=== PATIENT | female | born 1935 | race Caucasian/White ===

== ENCOUNTER 2016-11-01 21:37 | Observation (INO) | payer OTHER, MEDICARE ==
[~2016-11-01] VITALS: Ht 157.5 cm; Wt 58.6 kg
[~2016-11-01 21:37] MED LIST: ASPI81TA28 PO; HYDR-5688 PO; LPT10 PO
[2016-11-01] MEDS ORDERED: SODIUM CHLORIDE 0.9% 1000ML 1,000 ML IV SCH (21:55)
[2016-11-01 22:13] LABS: BASO % 0.7 %; BASO ABS # 0.06 K/uL (0-0.2); COMPLETE YES; IG% 0.3 %; LYMPH % 30.7 %; LYMPH ABS # 2.66 K/uL (1.2-3.4); MEAN CELL VOLUME 88.4 fL (80-100); MEAN CORPUSCULAR HEMOGLOBIN 30.1 pg (25-34); MEAN PLATELET VOLUME 10.8 fL (7.4-10.4); NEUT % 54.3 %; PLATELET COUNT 235 K/uL (130-400); RED BLOOD COUNT 4.75 M/uL (4.2-5.4); WHITE BLOOD COUNT 8.67 K/uL (4.8-10.8)
--- NOTE | 2016-11-01 22:22 | DIAGNOSTIC IMAGING REPORT ---
HEAD CT NONCONTRAST CT DOSE: 638.56 mGycm HISTORY: Stroke symptoms. Headache. Confusion. Slurred speech. TECHNIQUE: Multiaxial CT images of the head were performed without the use of intravenous contrast. Automated exposure control was utilized for this study. Comparison: Head CT 12/22/2013. Findings: The paranasal sinuses and mastoid air cells are clear. The calvarium and skull base are intact. There is no mass, hematoma, midline shift, acute infarct. White matter hypodensity is nonspecific but suggestive of microvascular ischemic change. The ventricles and sulci demonstrate mild age-related involutional changes. Impression: No acute intracranial abnormality. Atrophy and microvascular ischemic changes. Electronically signed by: Umang De La O M.D. 11/01/2016 10:20 PM Dictated Date/Time: 11/01/2016 10:16 PM
[2016-11-01 22:27] LABS: PARTIAL THROMBOPLASTIN RATIO 0.9; PROTHROMBIN TIME (PATIENT) 10.2 SECONDS (9.0-12.0)
[2016-11-01] MEDS ORDERED: MELA5TAB20 PO (22:29)
[2016-11-01] MEDS ORDERED: OMEG10007 PO (22:29)
[2016-11-01] MEDS ORDERED: CALC-51 PO (22:29)
[2016-11-01] MEDS ORDERED: COEN1CAP PO (22:29)
[2016-11-01] MEDS ORDERED: MULT-513 PO (22:29)
[2016-11-01] MEDS ORDERED: DIPH1TAB PO (22:29)
[2016-11-01 22:30] LABS: BLOOD UREA NITROGEN 19 mg/dl (7-18); CALCIUM 9.2 mg/dl (8.5-10.1); CARBON DIOXIDE 27 mmol/L (21-32); CHLORIDE 102 mmol/L (98-107); CREATININE 0.91 mg/dl (0.60-1.20); GLUCOSE 143 mg/dl (70-99); SODIUM 140 mmol/L (136-145)
[2016-11-01] MEDS ORDERED: GLUC10007 PO (22:30)
[2016-11-01 22:35] LABS: CKMB/CK RATIO 1.8 (0-3.0)
[2016-11-01] MEDS ORDERED: ONDANSETRON INJ 2 MG/ML 2 ML VIAL ONE (23:08)
[2016-11-01] MEDS ORDERED: ONDANSETRON INJ 2 MG/ML 2 ML VIAL IV STA (23:13)
[2016-11-01] MEDS ORDERED: IV FLUIDS COMPLETED PRN (23:45)
[2016-11-02] MEDS ORDERED: CLOPIDOGREL BISULFATE 75 MG TAB PO STA (00:11)
[2016-11-02] MEDS ORDERED: METOCLOPRAMIDE HCL INJ 5 MG/ML 2 ML VIAL IV STA (00:12)
[2016-11-02 00:13] LABS: ALKALINE PHOSPHATASE 68 U/L (45-117); ALT/SGPT 37 U/L (12-78)
[2016-11-02] MEDS ORDERED: PHARMACIST DISCHARGE MED REC CONSULT PRN (00:15)
[2016-11-02] MEDS ORDERED: ONDANSETRON INJ 2 MG/ML 2 ML VIAL IV PRN (00:15)
[2016-11-02] MEDS ORDERED: NITROGLYCERIN 0.4 MG SL PER TAB CHARGE SL PRN (00:15)
[2016-11-02] MEDS ORDERED: LORAZEPAM 2 MG/ML 1 ML VIAL IV PRN (00:15)
[2016-11-02] MEDS ORDERED: TRAMADOL HCL 50 MG TAB PO PRN (00:15)
[2016-11-02] MEDS ORDERED: HYDROmorphone INJ 0.5 MG/0.5 ML SYR IV PRN (00:15)
[2016-11-02] MEDS ORDERED: SODIUM CHLORIDE 0.9% 1000ML 1,000 ML IV ONE (00:15)
[2016-11-02] MEDS ORDERED: ACETAMINOPHEN 325 MG TAB PO PRN (00:15)
[2016-11-02 00:17] LABS: AST/SGOT 26 U/L (15-37); MAGNESIUM 2.4 mg/dl (1.8-2.4)
--- NOTE | 2016-11-02 01:23 | HISTORY & PHYSICAL EXAMINATION ---
DATE OF ADMISSION: 11/01/2016 PRIMARY CARE PHYSICIAN: Dr. Orosco. Hx obtained from px and records. CHIEF COMPLAINT: Slurred speech, word-finding difficulty. HISTORY OF PRESENT ILLNESS: Medical history is significant for TIA, hyperlipidemia, past tobacco abuse, GERD. Recent confinement in May 2015 for hematemesis post-colonoscopy prep intake. Patient was having dinner last night when she noted slurred speech, word- finding difficulty, similar to previous TIA sx. The patient also had achy left-sided headache sx as well somewhat worse w/ light. She had some posterior neck pain as well and some nausea. No chest pain, no shortness of breath. Compliant with home aspirin. At the Emergency Room, she had emesis. Stroke alert was called. Patient's symptoms are improving. MEDICAL HISTORY: As above. SURGERIES: She has had a D andC , cataract surgery and breast biopsy. HOME MEDICATIONS: Atorvastatin, aspirin, Claritin, multivitamins and glucosamine ALLERGIES: gluten FAMILY HISTORY: Colon cancer. PERSONAL AND SOCIAL HISTORY: Past tobacco. No chronic intake of alcoholic beverages. Retired sculptress REVIEW OF SYSTEMS: As per HPI, all other ROS negative. PHYSICAL EXAMINATION: VITAL SIGNS: Blood pressure was noted to be SBP 190s later 150/80, pulse rate 79, RR 20 T 37 O2 sats 94 on room air. GENERAL: Noted to be slightly anxious, uncomfortable, looks younger for age SKIN: Normal color. HEENT: Lester palpebral conjunctivae. Dry mucosa. NECK: Supple. CHEST: Clear to auscultation. HEART: Regular rate and rhythm. ABDOMEN: Soft. EXTREMITIES: No edema. No tenderness NEUROLOGIC: No gross focality. LABORATORIES: Hemoglobin was noted to be 14.8, hematocrit 42, white cell count 8.67 platelets 235. Sodium 140, potassium 4, chloride 102, CO2 27, BUN 19, creatinine 0.9, glucose 143 CT of the head; no acute pathology. ASSESSMENT: 1. Transient dysarthria, dysphasia symptoms poss recurrent TIA, ? ASA failure ddx : complicated migraine with headache symptoms 2. hypertensive urgency secondary to above 3. hyperlipidemia as per records 4. past tobacco abuse. 5. hyperglycemia ro DM PLAN: Observation PCU. Neuro checks. Plavix for now for poss ASA failure. MRI/MRA brain Further management pending MRI results. May need Neurology consult. permissive HTN until stroke ruled out. check HgA1C DVT prophylaxis, Lovenox subQ. Full code. MTDD
[2016-11-02 01:26] LABS: URINE APPEARANCE TURBID (CLEAR); URINE BILIRUBIN NEG (NEG); URINE COLOR YELLOW; URINE NITRITE NEG (NEG); URINE PH 8.5 (4.5-7.5); URINE SPECIFIC GRAVITY 1.007 (1.000-1.030); UROBILINOGEN NEG (NEG); ZZUR CULT IF INDIC CLEAN CATCH YES
[2016-11-02 01:35] LABS: MANUAL MICROSCOPIC REQUIRED? NO; REVIEW REQ? NO
--- NOTE | 2016-11-02 01:36 | EMERGENCY ROOM VISIT NOTE ---
History Report prepared by Robyn: Nicolle Miner Under the Supervision of: Dr. Mack Mcginnis D.O. First contact with patient: 21:45 Chief Complaint: STROKE SYMPTOMS Stated Complaint: SLURRED SPEECH, GUTHRIE, CONFUSION, History of Present Illness The patient is a 81 year old female who presents to the Emergency Room with complaints of constant slurred speech beginning 4 hours ago. The patient states that she thinks that she is having a TIA as she has had one before and this feels the same. She notes that she is having trouble finding her words and she experienced this during her last TIA 2 years ago as well. She reports that this happened when she was eating but she did not have any trouble eating. She complains of a headache on the left side. The patient denies any weakness or numbness in the arms or legs and change of vision, fevers, chest pain, shortness of breath, nausea, vomiting, diarrhea, urinary symptoms. She states that she takes Aspirin but is not on blood thinners. She does not have a history of A-fib. The patient reports that she does not feel like she has gotten any better since it started. Source of History: patient Onset: 4 hours ago Position: other (global) Timing: constant Associated Symptoms: + headache, No SOB, No chest pain, No diarrhea, No fevers, No nausea, No numbness, No urinary symptoms, No vomiting, No weakness Note: She notes that she cannot find words. The patient denies any weakness or numbness in the arms or legs and change of vision. Review of Systems See HPI for pertinent positives & negatives. A total of 10 systems reviewed and were otherwise negative. Past Medical & Surgical Medical Problems: (1) Anxiety (2) Arthritis (3) Cystocele (4) Disk disease (5) GERD (gastroesophageal reflux disease) (6) Hiatal hernia (7) High cholesterol (8) History of possible TIA (9) History of vertigo (10) Insomnia (11) Migraine (12) Osteoporosis (13) TIA (transient ischemic attack) Surgical Problems: (1) H/O colonoscopy with polypectomy (2) H/O esophagogastroduodenoscopy (3) History of cataract surgery (4) History of dilatation and curettage (5) History of hysteroscopy (6) S/P breast biopsy Family History Colon cancer Social History Smoking Status: Never Smoker Drug Use: none Marital Status: Occupation Status: retired Current/Historical Medications Scheduled Aspirin (Aspirin Ec), 81 MG PO DAILY Atorvastatin (Atorvastatin Calcium), 10 MG PO DAILY Calcium Carbonate-Vitamin D (Calcium), 1 TAB PO QAM Fish Oil ([place]-3), 1 CAP PO QAM Multivitamins/Minerals (Mvi With Minerals), 1 TAB PO QAM Scheduled PRN Diphenhydramine Hcl (Benadryl Allergy), 25 MG PO HS PRN for Sleep Melatonin (Cvs Melatonin), 5 MG PO HS PRN for Sleep Miscellaneous Medications Coenzyme Q10 (Ubidecarenone) (Co Q10), Unknown Dose PO Glucosamine Sulfate (Glucosamine), Unknown Dose PO Allergies Coded Allergies: Gluten (Verified Allergy, Mild, 11/01/16) Physical Exam Vital Signs Date Time Temp Pulse Resp B/P Pulse Ox O2 Delivery O2 Flow Rate FiO2 11/02/16 00:15 73 18 153/77 93 11/02/16 00:00 73 18 153/77 93 Room Air 11/01/16 23:00 70 20 150/80 95 Room Air 11/01/16 22:45 70 20 150/84 92 Room Air 11/01/16 22:30 71 18 153/75 93 Room Air 11/01/16 22:24 72 11/01/16 22:17 71 20 152/87 97 Room Air 11/01/16 22:17 97 Room Air 11/01/16 22:04 79 20 154/83 94 Room Air 11/01/16 21:39 36.6 71 20 191/73 96 Room Air Physical Exam GENERAL: sitting up in bed, disheveled, non-toxic EYE EXAM: normal conjunctiva, PERRL and EOM's intact OROPHARYNX: no exudate, no erythema, lips, buccal mucosa, and tongue normal and mucous membranes are moist NECK: supple, no nuchal rigidity, no adenopathy, non-tender LUNGS: Clear to auscultation. Normal chest wall mechanics HEART: no murmurs, S1 normal and S2 normal ABDOMEN: abdomen soft, non-tender, normo-active bowel sounds, no masses, no rebound or guarding. BACK: Back is symmetrical on inspection and there is no deformity, no midline tenderness, no CVA tenderness. SKIN: no rashes and no bruising UPPER EXTREMITIES: upper extremities are grossly normal. LOWER EXTREMITIES: No pitting edema. NEURO EXAM: Alert, following commands, intermittent word finding, no weakness of upper or lower extremities, cranial nerves II-XII intact, normal speech. No drift. Finger to nose intact. Gross sensation intact. Medical Decision & Procedures ER Provider Diagnostic Interpretation: CT:Per my review, radiologist interpretation. HEAD CT NONCONTRAST Findings: The paranasal sinuses and mastoid air cells are clear. The calvarium and skull base are intact. There is no mass, hematoma, midline shift, acute infarct. White matter hypodensity is nonspecific but suggestive of microvascular ischemic change. The ventricles and sulci demonstrate mild age-related involutional changes. Impression: No acute intracranial abnormality. Atrophy and microvascular ischemic changes. Electronically signed by: Umang De La O M.D. 11/01/2016 10:20 PM Dictated Date/Time: 11/01/2016 10:16 PM Laboratory Results 11/01/16 22:00 Red Blood Count 4.75, Mean Corpuscular Volume 88.4, Mean Corpuscular Hemoglobin 30.1, Mean Corpuscular Hemoglobin Concent 34.0, Mean Platelet Volume 10.8, Neutrophils (%) (Auto) 54.3, Lymphocytes (%) (Auto) 30.7, Monocytes (%) (Auto) 10.0, Eosinophils (%) (Auto) 4.0, Basophils (%) (Auto) 0.7, Neutrophils # (Auto ) 4.70, Lymphocytes # (Auto) 2.66, Monocytes # (Auto) 0.87, Eosinophils # (Auto ) 0.35, Basophils # (Auto) 0.06 11/01/16 22:00 Test 11/01/16 22:00 11/02/16 01:10 White Blood Count 8.67 K/uL (4.8-10.8) Red Blood Count 4.75 M/uL (4.2-5.4) Hemoglobin 14.3 g/dL (12.0-16.0) Hematocrit 42.0 % (37-47) Mean Corpuscular Volume 88.4 fL (80-100) Mean Corpuscular Hemoglobin 30.1 pg (25-34) Mean Corpuscular Hemoglobin Concent 34.0 g/dl (32-36) Platelet Count 235 K/uL (130-400) Mean Platelet Volume 10.8 fL (7.4-10.4) Neutrophils (%) (Auto) 54.3 % Lymphocytes (%) (Auto) 30.7 % Monocytes (%) (Auto) 10.0 % Eosinophils (%) (Auto) 4.0 % Basophils (%) (Auto) 0.7 % Neutrophils # (Auto) 4.70 K/uL (1.4-6.5) Lymphocytes # (Auto) 2.66 K/uL (1.2-3.4) Monocytes # (Auto) 0.87 K/uL (0.11-0.59) Eosinophils # (Auto) 0.35 K/uL (0-0.5) Basophils # (Auto) 0.06 K/uL (0-0.2) RDW Standard Deviation 47.0 fL (36.4-46.3) RDW Coefficient of Variation 14.4 % (11.5-14.5) Immature Granulocyte % (Auto) 0.3 % Immature Granulocyte # (Auto) 0.03 K/uL (0.00-0.02) Prothrombin Time 10.2 SECONDS (9.0-12.0) Prothromb Time International Ratio 1.0 (0.9-1.1) Activated Partial Thromboplast Time 24.5 SECONDS (21.0-31.0) Partial Thromboplastin Ratio 0.9 Anion Gap 11.0 mmol/L (3-11) Est Creatinine Clear Calc Drug Dose 38.7 ml/min Estimated GFR () 67.6 Estimated GFR (Non- 58.3 BUN/Creatinine Ratio 21.0 (10-20) Calcium Level 9.2 mg/dl (8.5-10.1) Magnesium Level 2.4 mg/dl (1.8-2.4) Total Bilirubin < 0.1 mg/dl (0.2-1) Direct Bilirubin < 0.1 mg/dl (0-0.2) Aspartate Amino Transf (AST/SGOT) 26 U/L (15-37) Alanine Aminotransferase (ALT/SGPT) 37 U/L (12-78) Alkaline Phosphatase 68 U/L (45-117) Total Creatine Kinase 94 U/L (26-192) Creatine Kinase MB 1.7 ng/ml (0.5-3.6) Creatine Kinase MB Ratio 1.8 (0-3.0) Troponin I < 0.015 ng/ml (0-0.045) Total Protein 7.3 gm/dl (6.4-8.2) Albumin 3.8 gm/dl (3.4-5.0) Thyroid Stimulating Hormone (TSH) 1.900 uIu/ml (0.300-4.500) Laboratory results per my review. Medications Administered Medications (Trade) Dose Ordered Sig/Volodymyr Route Start Time Stop Time Status Last Admin Dose Admin Sodium Chloride (Nss 1000ml) 1,000 ml @ 50 mls/hr Q20H IV 11/01/16 21:55 11/02/16 00:26 DC 11/01/16 23:08 50 MLS/HR Ondansetron HCl (Zofran Inj) 4 mg NOW STAT IV 11/01/16 23:13 11/01/16 23:14 DC 11/01/16 23:33 4 MG Metoclopramide HCl (Reglan Inj) 10 mg ONE STAT IV 11/02/16 00:12 11/02/16 00:13 DC 11/02/16 00:26 10 MG Hydromorphone HCl (Dilaudid Inj) 0.5 mg Q3H PRN IV 11/02/16 00:15 11/16/16 00:14 11/02/16 00:26 0.5 MG Clopidogrel Bisulfate (plAVix TAB) 75 mg NOW STAT PO 11/02/16 00:11 11/02/16 00:12 DC 11/02/16 00:29 75 MG ECG Indication: other (stroke symptoms) Rate (beats per minute): 71 Rhythm: sinus rhythm Findings: no ectopy, other (normal axis, flipped T waves in septal leads) ED Course ED COURSE: Vital signs were reviewed and showed hypertension The patients medical record was reviewed The above diagnostic studies were performed and reviewed. ED treatments and interventions as stated above. 2145: The patient was evaluated in room B6. A complete history and physical examination was performed. 2155: Sodium Chloride 1000 ml @ 50 mls/hr IV. 2218: I reviewed the patient's case with Dr. Snow. The patient is out of the stroke window but he will still evaluate her. 2331: I reviewed the patient's case with Dr. Hanson of [facility]. He will evaluate the patient for further management. 2345: Upon reevaluation, the patient is hemodynamically stable.I discussed my findings with the patient and she understands and agrees with the treatment plan. Based on the patients age, coexisting illnesses, exam and lab findings the decision to treat as an inpatient was made. The patient remained stable while under my care. The patient will be evaluated for further management. Medical Decision Differential Diagnosis includes but is not limited to ischemic Stroke, hemorrhagic stroke, bells palsy, mass, neoplasm, migraine headache, seizure, subarachnoid hemorrhage, TIA, and transient global amnesia. Patient is an 81-year-old female who presents in the ER for were finding and slurred speech. This started at 6 PM. She sitting at dinner table at that time. She presented to triage and was taken back to B pod. I saw her shortly after she is placed in a room. Following my evaluation and made her stroke alert but she was just under the 3 hour window at this time. She is immediately taken to CT. Following return from CT. I did not see any acute bleed I called [facility]. At this time I spoke with [facility] and we are currently out of the three-hour window. She was evaluated by the stroke neurologist. Labs were obtained. Labs show no significant leukocytosis or anemia. BMP along with LFTs, bilirubin or unremarkable. Troponin was negative. UA and tox was pending. INR was normal. Patient had are taken aspirin prior to arrival consequently did not give another dose patient was given a bolus normal saline. Systolic blood pressure trended down from the 190s to 150s on their own. Case is discussed with internal medicine patient was admitted for a stroke with aphasia. Patient and family were updated bedside. Consults Time Called: 2213 Consulting Physician: Dr. Gwendolyn Cherry Returned Call: [phone] I reviewed the patient's case with Dr. Snow. The patient is out of the stroke window but he will still evaluate her. Additional Consults: Time Called: 2323 Consulted Physician: Dr. Margie Patino Returned Call: [phone] Additional Comments: I reviewed the patient's case with Dr. Hanson of [facility]. He will evaluate the patient for further management. Impression Primary Impression: CVA (cerebral vascular accident) Additional Impression: Aphagia Scribe Attestation The scribe's documentation has been prepared under my direction and personally reviewed by me in its entirety. I confirm that the note above accurately reflects all work, treatment, procedures, and medical decision making performed by me. Departure Information Dispostion Being Evaluated By Hospitalist Referrals Reynaldo Orosco M.D.([facility]AB[facility]EL) (PCP) Patient Instructions [facility] Problem Qualifiers Primary Impression: CVA (cerebral vascular accident) CVA mechanism: unspecified Qualified Codes: I63.9 - Cerebral infarction, unspecified
[2016-11-02 01:43] LABS: BENZODIAZEPINE, URINE NEG (NEG); COCAINE,URINE NEG (NEG); PHENCYCLIDINE, URINE NEG (NEG)
[2016-11-02 01:48] VITALS: BP 163/70; PULSE 67; TEMP 36.7; O2SAT 94; Ht 157.5 cm; Wt 58.6 kg
[2016-11-02 04:22] VITALS: BP 128/62; PULSE 80; TEMP 37.2; O2SAT 96
[2016-11-02 06:11] LABS: BASO % 0.2 %; BASO ABS # 0.03 K/uL (0-0.2); COMPLETE YES; HEMATOCRIT 39.5 % (37-47); IG% 0.2 %; LYMPH % 10.7 %; LYMPH ABS # 1.29 K/uL (1.2-3.4); MEAN CELL VOLUME 87.2 fL (80-100); MEAN CORPUSCULAR HEMOGLOBIN 29.4 pg (25-34); MEAN CORPUSCULAR HGB CONC 33.7 g/dl (32-36); MEAN PLATELET VOLUME 11.1 fL (7.4-10.4); MONO % 4.4 %; NEUT % 84.5 %; PLATELET COUNT 221 K/uL (130-400); RED BLOOD COUNT 4.53 M/uL (4.2-5.4); WHITE BLOOD COUNT 12.09 K/uL (4.8-10.8)
[2016-11-02 06:29] LABS: BUN/CREATININE RATIO 23.3 (10-20); CALCIUM 8.6 mg/dl (8.5-10.1); CREATININE 0.72 mg/dl (0.60-1.20); POTASSIUM 3.8 mmol/L (3.5-5.1)
[2016-11-02 06:30] LABS: CHOLESTEROL/HDL RATIO 2.9
--- NOTE | 2016-11-02 06:50 | DIAGNOSTIC IMAGING REPORT ---
MRI OF THE BRAIN WITHOUT CONTRAST CLINICAL HISTORY: Stroke, slurred speech, headache, confusion. COMPARISON STUDY: Head CT dated 11/01/2016, MRI the brain dated 12/22/2013 FINDINGS: Sagittal T1, axial diffusion, proton density and T2 weighted axial, coronal FLAIR, and axial T1-weighted images were acquired. No intra or extra-axial mass lesions are visualized Axial diffusion-weighted images reveal no evidence of acute or subacute infarction. There is no evidence of ventricular dilatation. Proton density T2-weighted and FLAIR images reveal scattered foci of increased T2 signal within the white matter, likely on a small vessel basis. There is also a focus of increased T2 signal within the left tavia. Findings remain similar to the preceding 2013 examination There are no abnormal flow voids. IMPRESSION: 1. No significant change from the prior December 2013 study. Scattered foci of increased T2 and FLAIR signal, likely on a small vessel basis. 2. No evidence of intracranial mass 3. No evidence of acute or subacute infarction Electronically signed by: Ethan Kimball M.D. 11/02/2016 6:48 AM Dictated Date/Time: 11/02/2016 6:45 AM
[2016-11-02 07:01] LABS: ESTIMATED AVERAGE GLUCOSE 123 mg/dl; HA1C FLAG Normal (Normal)
--- NOTE | 2016-11-02 07:12 | DIAGNOSTIC IMAGING REPORT ---
MR ANGIOGRAM OF THE BRAIN CLINICAL HISTORY: Slurred speech. Headache. COMPARISON STUDY: MRI of the brain performed concurrently on 11/02/2016. MR angiogram of the brain dated 12/22/2013. TECHNIQUE: 3-D [id number] MR angiography of the intracranial circulation is performed. 3-D tumble views are created and assessed. IV contrast was not administered for this examination. FINDINGS: There is origin of the right posterior cerebral artery. The right A1 segment is atretic. The internal carotid arteries are widely patent bilaterally, as are the anterior and middle cerebral arteries. The vertebrobasilar system and posterior cerebral arteries are widely patent. The left vertebral artery is dominant. There is no aneurysm, high-grade stenosis, or focal vessel cutoff seen throughout the intracranial circulation. The brain parenchyma is normal as visualized noting age-related involutional change. IMPRESSION: Unremarkable MR angiogram of the brain. Electronically signed by: Bebeto Baires M.D. 11/02/2016 7:11 AM Dictated Date/Time: 11/02/2016 7:08 AM
[2016-11-02 07:38] VITALS: BP 119/66; PULSE 83; TEMP 36.7; O2SAT 95
[2016-11-02] MEDS ORDERED: ATORVASTATIN 10 MG TAB PO SCH (09:00)
[2016-11-02] MEDS ORDERED: CEROVITE ADV FORMULA TAB PO SCH (09:00)
[2016-11-02] MEDS ORDERED: ENOXAPARIN 40 MG/0.4 ML SYR SC SCH (09:00)
--- NOTE | 2016-11-02 09:34 | Progress Note ---
Subjective Date of Service: Nov 02, 2016. Subjective Pt evaluation today including: conversation w/ patient, physical exam, lab review, review of studies, review of inpatient medication list Saw/examined the patient in room 229 Doing well, no residual symptoms No slurred speech, no neurological symptoms Very eager to go home +insomnia in the hospital No motor dysfunction Problem List Medical Problems: (1) Aphagia Status: Acute (2) CVA (cerebral vascular accident) Status: Acute Review of Systems Respiratory: No cough, No shortness of breath, No sputum Cardiac: No chest pain, No edema, No palpitations Neurologic: No balance problems, No memory loss, No numbness/tingling, No paralysis, No vertigo, No weakness Medications Current Inpatient Medications Medications (Trade) Dose Ordered Sig/Volodymyr Route Start Time Stop Time Status Last Admin Dose Admin Miscellaneous (Iv Fluids Completed) 1 ea PRN PRN N/A 11/01/16 23:45 11/01/17 23:44 Hydromorphone HCl (Dilaudid Inj) 0.5 mg Q3H PRN IV 11/02/16 00:15 11/16/16 00:14 11/02/16 00:26 0.5 MG Clopidogrel Bisulfate (plAVix TAB) 75 mg QAM PO 11/03/16 09:00 12/03/16 08:59 Enoxaparin Sodium 40 mg 40 mg Q24H SC 11/02/16 09:00 12/02/16 08:59 11/02/16 08:10 40 MG Sodium Chloride (Nss 1000ml) 1,000 ml @ 100 mls/hr Q10H ONCE IV 11/02/16 00:15 11/02/16 10:14 11/02/16 01:55 100 MLS/HR Acetaminophen (Tylenol Tab) 650 mg Q4H PRN PO 11/02/16 00:15 12/02/16 00:14 Nitroglycerin (Nitrostat Tab) 0.4 mg UD PRN SL 11/02/16 00:15 12/02/16 00:14 Miscellaneous Information (Pharmacist Discharge Med Rec Consult) 1 ea UD PRN N/A 11/02/16 00:15 12/02/16 00:14 Lorazepam (Ativan Inj) 0.5 mg Q4H PRN IV 11/02/16 00:15 12/02/16 00:14 Tramadol HCl (Ultram Tab) 25 mg Q6H PRN PO 11/02/16 00:15 12/02/16 00:14 Ondansetron HCl (Zofran Inj) 4 mg Q6H PRN IV 11/02/16 00:15 12/02/16 00:14 Atorvastatin Calcium (Lipitor Tab) 10 mg DAILY PO 11/02/16 09:00 12/02/16 08:59 11/02/16 08:11 10 MG Multivitamins/ Minerals (Multivitamin W/ Minerals Tab) 1 tab QAM PO 11/02/16 09:00 12/02/16 08:59 11/02/16 08:11 1 TAB Objective Vital Signs Date Time Temp Pulse Resp B/P Pulse Ox O2 Delivery O2 Flow Rate FiO2 11/02/16 08:00 Room Air 11/02/16 07:38 36.7 83 18 119/66 95 Room Air 11/02/16 04:30 Room Air 11/02/16 04:22 37.2 80 18 128/62 96 Room Air 11/02/16 01:48 36.7 67 16 163/70 94 Room Air 11/02/16 00:15 73 18 153/77 93 11/02/16 00:00 73 18 153/77 93 Room Air 11/01/16 23:00 70 20 150/80 95 Room Air 11/01/16 22:45 70 20 150/84 92 Room Air 11/01/16 22:30 71 18 153/75 93 Room Air 11/01/16 22:24 72 11/01/16 22:17 71 20 152/87 97 Room Air 11/01/16 22:17 97 Room Air 11/01/16 22:04 79 20 154/83 94 Room Air 11/01/16 21:39 36.6 71 20 191/73 96 Room Air Physical Exam General Appearance: no apparent distress Respiratory/Chest: lungs clear, normal breath sounds, no respiratory distress, no accessory muscle use Cardiovascular: regular rate, rhythm, no edema, no murmur Abdomen: normal bowel sounds, non tender, soft Extremities: normal inspection, no pedal edema Neurologic/Psychiatric: no motor/sensory deficits, alert, normal mood/affect Laboratory Results Last 24 Hours Test 11/01/16 22:00 11/02/16 01:10 11/02/16 05:29 White Blood Count 8.67 K/uL 12.09 K/uL Red Blood Count 4.75 M/uL 4.53 M/uL Hemoglobin 14.3 g/dL 13.3 g/dL Hematocrit 42.0 % 39.5 % Mean Corpuscular Volume 88.4 fL 87.2 fL Mean Corpuscular Hemoglobin 30.1 pg 29.4 pg Mean Corpuscular Hemoglobin Concent 34.0 g/dl 33.7 g/dl Platelet Count 235 K/uL 221 K/uL Mean Platelet Volume 10.8 fL 11.1 fL Neutrophils (%) (Auto) 54.3 % 84.5 % Lymphocytes (%) (Auto) 30.7 % 10.7 % Monocytes (%) (Auto) 10.0 % 4.4 % Eosinophils (%) (Auto) 4.0 % 0.0 % Basophils (%) (Auto) 0.7 % 0.2 % Neutrophils # (Auto) 4.70 K/uL 10.21 K/uL Lymphocytes # (Auto) 2.66 K/uL 1.29 K/uL Monocytes # (Auto) 0.87 K/uL 0.53 K/uL Eosinophils # (Auto) 0.35 K/uL 0.00 K/uL Basophils # (Auto) 0.06 K/uL 0.03 K/uL RDW Standard Deviation 47.0 fL 46.0 fL RDW Coefficient of Variation 14.4 % 14.4 % Immature Granulocyte % (Auto) 0.3 % 0.2 % Immature Granulocyte # (Auto) 0.03 K/uL 0.03 K/uL Prothrombin Time 10.2 SECONDS Prothromb Time International Ratio 1.0 Activated Partial Thromboplast Time 24.5 SECONDS Partial Thromboplastin Ratio 0.9 Sodium Level 140 mmol/L 139 mmol/L Potassium Level 4.0 mmol/L 3.8 mmol/L Chloride Level 102 mmol/L 105 mmol/L Carbon Dioxide Level 27 mmol/L 23 mmol/L Anion Gap 11.0 mmol/L 11.0 mmol/L Blood Urea Nitrogen 19 mg/dl 17 mg/dl Creatinine 0.91 mg/dl 0.72 mg/dl Est Creatinine Clear Calc Drug Dose 38.7 ml/min 46.8 ml/min Estimated GFR () 67.6 89.8 Estimated GFR (Non- 58.3 77.4 BUN/Creatinine Ratio 21.0 23.3 Random Glucose 143 mg/dl 120 mg/dl Estimated Average Glucose 123 mg/dl Hemoglobin A1c 5.9 % Calcium Level 9.2 mg/dl 8.6 mg/dl Magnesium Level 2.4 mg/dl Total Bilirubin < 0.1 mg/dl Direct Bilirubin < 0.1 mg/dl Aspartate Amino Transf (AST/SGOT) 26 U/L Alanine Aminotransferase (ALT/SGPT) 37 U/L Alkaline Phosphatase 68 U/L Total Creatine Kinase 94 U/L Creatine Kinase MB 1.7 ng/ml Creatine Kinase MB Ratio 1.8 Troponin I < 0.015 ng/ml Total Protein 7.3 gm/dl Albumin 3.8 gm/dl Thyroid Stimulating Hormone (TSH) 1.900 uIu/ml Urine Color YELLOW Urine Appearance TURBID Urine pH 8.5 Urine Specific [place] 1.007 Urine Protein NEG Urine Glucose (UA) NEG Urine Ketones NEG Urine Occult Blood TRACE Urine Nitrite NEG Urine Bilirubin NEG Urine Urobilinogen NEG Urine Leukocyte Esterase LARGE Urine WBC (Auto) >30 /hpf Urine RBC (Auto) 5-10 /hpf Urine Hyaline Casts (Auto) 5-10 /lpf Urine Epithelial Cells (Auto) 10-20 /lpf Urine Bacteria (Auto) NEG Urine Opiates Screen NEG Urine Methadone, Qualitative NEG Urine Barbiturates NEG Urine Phencyclidine (PCP) Level NEG Ur Amphetamine/Methamphetamine NEG MDMA (Ecstasy) Screen NEG Urine Benzodiazepines Screen NEG Urine Cocaine Metabolite NEG Urine Marijuana (THC) NEG Triglycerides Level 45 mg/dl Cholesterol Level 173 mg/dl HDL Cholesterol 60 mg/dl LDL Cholesterol, Calculated 104 mg/dl VLDL Cholesterol, Calculated 9 mg/dl Cholesterol/HDL Ratio 2.9 Assessment and Plan This is a 81 year old female with PMH of hyperlipidemia, possible hx. of TIA, migraines presented with stroke like symptoms/slurred speech Stroke-like Symptoms * symptoms have resolved since presenting to the ER * Head CT, Brain MRI/MRA = no acute findings * hemodynamically stable * no acute findings on labwork * patient had been on ASA 81mg at home * started on plavix here * at this point, I believe we should discontinue Plavix and d/c patient home on full dose ASA 325mg for 6months-1year * should follow-up with PCP and may need neurology input as outpatient * will increase statin to 20mg DVT ppx * lovenox FULL CODE
[2016-11-02] MEDS ORDERED: ATOR-54 PO (09:37)
[2016-11-02] MEDS ORDERED: ASPI325T45 PO (09:37)
--- NOTE | 2016-11-02 09:38 | Discharge Instructions ---
Discharge Instructions Admission Reason for Admission: TIA Discharge Discharge Diagnosis / Problem: Possible TIA vs. migraines Discharge Goals Goal(s): Decrease discomfort, Improve function Activity Recommendations Activity Limitations: resume your previous activity . Instructions / Follow-Up Instructions / Follow-Up Please follow-up with Dr. Orosco on November 09 @ 1:00PM * Increase ASA from 81mg to 325mg daily * Increase Lipitor from 10mg to 20mg daily * May need outpatient neurology input regarding symptoms and possible migraines Current Hospital Diet Patient's current hospital diet: Clear Liquid Diet Discharge Diet Recommended Diet: AHA Diet (Heart Healthy) Pending Studies Studies pending at discharge: no Laboratory Results Hemoglobin A1c Test 11/01/16 22:00 Range/Units Estimated Average Glucose 123 mg/dl Hemoglobin A1c 5.9 H 4.5-5.6 % Lipid Panel Test 11/02/16 05:29 Range/Units Triglycerides Level 45 0-150 mg/dl Cholesterol Level 173 0-200 mg/dl HDL Cholesterol 60 mg/dl Cholesterol/HDL Ratio 2.9 LDL Cholesterol, Calculated 104 mg/dl Medical Emergencies . Who to Call and When: Medical Emergencies: If at any time you feel your situation is an emergency, please call 911 immediately. . Non-Emergent Contact Non-Emergency issues call your: Primary Care Provider . . "Provider Documentation" section prepared by Trav Ashley. VTE Core Measure Inpt VTE Proph given/why not?: Enoxaparin (Lovenox)SQ
--- NOTE | 2016-11-02 09:40 | Discharge Summary ---
Discharge Summary Admission Date: Nov 01, 2016 at 23:44 Discharge Date: Nov 02, 2016 Discharge Disposition: Home Principal Diagnosis: Stroke Like Symptoms; possible TIA vs. migraines Medication Reconciliation Changed Medications: Aspirin (Aspirin) 325 Mg Tab 325 MG PO DAILY for 30 Days, #30 TAB (Changed from: Aspirin (Aspirin Ec) 81 Mg Tab 81 Mg PO DAILY) Atorvastatin (Lipitor) 20 Mg Tab 1 TAB PO DAILY for 90 Days, #90 TAB 1 Refill (Changed from: Atorvastatin ( Atorvastatin Calcium) 10 Mg Tab 10 Mg PO DAILY) Continued Medications: Calcium Carbonate-Vitamin D (Calcium) 1 Tab Tab 1 TAB PO QAM Coenzyme Q10 (Ubidecarenone) (Co Q10) Unknown Strength Cap Unknown Dose PO, CAP NS Diphenhydramine Hcl (Benadryl Allergy) 25 Mg Tab 25 MG PO HS PRN for Sleep Fish Oil ([place]-3) 1 Ea Cap 1 CAP PO QAM, CAP Glucosamine Sulfate (Glucosamine) Unknown Strength Tab Unknown Dose PO, TAB Melatonin (Cvs Melatonin) 5 Mg Tab 5 MG PO HS PRN for Sleep Multivitamins/Minerals (Mvi With Minerals) Tab 1 TAB PO QAM, TAB Admission Information HPI (per Admitting provider): DATE OF ADMISSION: 11/01/2016 PRIMARY CARE PHYSICIAN: Dr. Orosco. Hx obtained from px and records. CHIEF COMPLAINT: Slurred speech, word-finding difficulty. HISTORY OF PRESENT ILLNESS: Medical history is significant for TIA, hyperlipidemia, past tobacco abuse, GERD. Recent confinement in May 2015 for hematemesis post-colonoscopy prep intake. Patient was having dinner last night when she noted slurred speech, word- finding difficulty, similar to previous TIA sx. The patient also had achy left-sided headache sx as well somewhat worse w/ light. She had some posterior neck pain as well and some nausea. No chest pain, no shortness of breath. Compliant with home aspirin. At the Emergency Room, she had emesis. Stroke alert was called. Patient's symptoms are improving. MEDICAL HISTORY: As above. SURGERIES: She has had a D andC , cataract surgery and breast biopsy. HOME MEDICATIONS: Atorvastatin, aspirin, Claritin, multivitamins and glucosamine ALLERGIES: gluten FAMILY HISTORY: Colon cancer. PERSONAL AND SOCIAL HISTORY: Past tobacco. No chronic intake of alcoholic beverages. Retired sculptress REVIEW OF SYSTEMS: As per HPI, all other ROS negative. PHYSICAL EXAMINATION: VITAL SIGNS: Blood pressure was noted to be SBP 190s later 150/80, pulse rate 79, RR 20 T 37 O2 sats 94 on room air. GENERAL: Noted to be slightly anxious, uncomfortable, looks younger for age SKIN: Normal color. HEENT: [place] palpebral conjunctivae. Dry mucosa. NECK: Supple. CHEST: Clear to auscultation. HEART: Regular rate and rhythm. ABDOMEN: Soft. EXTREMITIES: No edema. No tenderness NEUROLOGIC: No gross focality. LABORATORIES: Hemoglobin was noted to be 14.8, hematocrit 42, white cell count 8.67 platelets 235. Sodium 140, potassium 4, chloride 102, CO2 27, BUN 19, creatinine 0.9, glucose 143 CT of the head; no acute pathology. ASSESSMENT: 1. Transient dysarthria, dysphasia symptoms poss recurrent TIA, ? ASA failure ddx : complicated migraine with headache symptoms 2. hypertensive urgency secondary to above 3. hyperlipidemia as per records 4. past tobacco abuse. 5. hyperglycemia ro DM PLAN: Observation PCU. Neuro checks. Plavix for now for poss ASA failure. MRI/MRA brain Further management pending MRI results. May need Neurology consult. permissive HTN until stroke ruled out. check HgA1C DVT prophylaxis, Lovenox subQ. Full code. Hospital Course This is a 81 year old female with PMH of hyperlipidemia, possible hx. of TIA, migraines presented with stroke like symptoms/slurred speech Stroke-like Symptoms * symptoms have resolved since presenting to the ER * Head CT, Brain MRI/MRA = no acute findings * hemodynamically stable * no acute findings on labwork * patient had been on ASA 81mg at home * started on plavix here * at this point, I believe we should discontinue Plavix and d/c patient home on full dose ASA 325mg for 6months-1year * should follow-up with PCP and may need neurology input as outpatient * will increase statin to 20mg DVT ppx * lovenox FULL CODE Total time spent on discharge = 25 minutes This includes examination of the patient, discharge planning, medication reconciliation, and communication with other providers. Discharge Instructions Please follow-up with Dr. Orosco on November 09 @ 1:00PM * Increase ASA from 81mg to 325mg daily * Increase Lipitor from 10mg to 20mg daily * May need outpatient neurology input regarding symptoms and possible migraines
[2016-11-02 10:03] VITALS: BP 119/66; PULSE 83; TEMP 36.7; O2SAT 95
--- NOTE | 2016-11-02 10:29 | Pharmacy Progress Note ---
Pharmacist Stroke Counseling Date of Service Nov 02, 2016. Scope Pharmacy has been consulted to provide medication discharge counseling for this patient admitted with possible transient ischemic attack as per the Pharmacist Discharge Counseling for Stroke Patients Protocol. Medications on Discharge Changed Medications: Aspirin (Aspirin) 325 Mg Tab 325 MG PO DAILY for 30 Days, #30 TAB (Changed from: Aspirin (Aspirin Ec) 81 Mg Tab 81 Mg PO DAILY) Atorvastatin (Lipitor) 20 Mg Tab 1 TAB PO DAILY for 90 Days, #90 TAB 1 Refill (Changed from: Atorvastatin ( Atorvastatin Calcium) 10 Mg Tab 10 Mg PO DAILY) Continued Medications: Calcium Carbonate-Vitamin D (Calcium) 1 Tab Tab 1 TAB PO QAM Coenzyme Q10 (Ubidecarenone) (Co Q10) Unknown Strength Cap Unknown Dose PO, CAP NS Diphenhydramine Hcl (Benadryl Allergy) 25 Mg Tab 25 MG PO HS PRN for Sleep Fish Oil ([place]-3) 1 Ea Cap 1 CAP PO QAM, CAP Glucosamine Sulfate (Glucosamine) Unknown Strength Tab Unknown Dose PO, TAB Melatonin (Cvs Melatonin) 5 Mg Tab 5 MG PO HS PRN for Sleep Multivitamins/Minerals (Mvi With Minerals) Tab 1 TAB PO QAM, TAB Action The above medications, specifically ones for stroke treatment/prophylaxis, have been reviewed in detail with the patient and/or patient technical sales representatives(s) prior to discharge. This includes indication, common adverse reactions, drug interactions, and medication administration. Medication counseling has been employed using the teach-back method to ensure understanding. Outcome The patient and/or patient technical sales representatives(s) have demonstrated understanding of the medications. Please note, they are aware that the pharmacist will call them within 72 hours post-discharge to confirm that the appropriate medications are being taken and answer any further medication related questions the patient might have at that time. Contact information Individual to be contacted: patient Relationship to patient (if applicable): n/a Phone number: [phone] Best time to call: that is her cell phone Additional comments: Patient has an appointment with cardiology after discharge from the hospital. She will review all changes with cardiology prior to taking. She did have a prior reaction to have dose statins (did not know reaction; did not think it was muscle pains) and will review this with her non morse intercept technician. Thank you for allowing pharmacy to be involved in the care of this patient. Please call [phone] or [phone] with any additional questions
[2016-11-02 11:52] LABS: ISTAT CREATININE 0.9 mg/dl (0.6-1.3); ISTAT IONIZED CALCIUM 1.19 mmol/l (1.12-1.32)
[2016-11-03] MEDS ORDERED: CLOPIDOGREL BISULFATE 75 MG TAB PO SCH (09:00)
--- NOTE | 2016-11-03 10:02 | EDITING REQUIRED CODING QUERY ---
DIAGNOSIS CLARIFICATION In an observation settings, diagnoses such as possible, probably, consistent with, versus, and rule out cannot be coded. Please clarify below the presence of a TIA vs Migraine: ( ) TIA was present during admission ( ) TIA was ruled out during admission ( ) Migraine was present during admission ( ) Migraine was ruled out during admission ( X ) Presenting symptoms could not be determined as TIA or migraine ( ) Other, please clarify: Thank you for your assistance, Cheri Andrea - Clinical Administrative Coordinator
--- NOTE | 2016-11-06 12:10 | Pharmacy Progress Note ---
Pharmacist Post D/C Phone Note Date of phone call: Nov 06, 2016. Individual with whom pharmacist spoke to: Spoke with the patient, Pricila, on her cell at [phone] The following questions were reviewed during the phone call with responses listed below each: Can you tell me the medications that you are currently taking as well as when and how you take each medication? - Patient was instructed to take * Aspirin 325mg PO daily - changed from aspirin 81mg po daily prior to this admission * Atorvastatin 20mg PO daily - changed from atorvastatin 10 mg po daily prior to this admission - Patient reports that she is not taking the higher doses recommended based on advice from her Business Intelligence Developer who will be conducting further testing When have you missed any doses of your medications? - Has not missed any doses What side effects are you having from your medications? - Reports no new side effects since taking the pre-admission dosing What questions do you have about your medications? - None What problems are you having obtaining your medications? - None When is your next appointment with your primary care doctor? - Will be following up for additional testing with her rn outpatient surgery Additional comments: - She did ask about Dr Ashley and his recommendation for follow-up with Neurology. (Per his note is stated that he may follow with Neurology) - She will follow-up with the Neurology issue As per the Pharmacist Discharge Counseling for Stroke Patients Protocol, this phone call has been completed within 96 hours (an extra day required because of the weekend) of discharge. Thank you for allowing us to be involved in the care of this patient.
[2016-11-06] MEDS ORDERED: ATOR10TA88 PO (12:16)
[2016-11-06] MEDS ORDERED: ASPI81TA28 PO (12:17)
--- NOTE | 2016-11-10 07:20 | EDITING REQUIRED CODING QUERY ---
SUPPORTING DIAGNOSIS NEEDED Dr. Hanson, A supporting diagnosis is required for the test/procedure performed on this patient in order for us to be reimbursed by the patient's insurance. Please provide a supporting diagnosis for the following test/procedure listed below next to the test name along with your signature. *If there is no additional diagnosis for this patient that would support the following test/procedure please document that below next to the test/procedure. Test(s)/Procedure(s) that require a supporting diagnosis: * ([id number]) MRA HEAD, NECK DIAGNOSIS: TIA DATE OF SERVICE: 11/02/16 Provider Signature: JNO Date: ___11/14/16____ Thank you Reynaldo Desouza [facility] Information Management Once completed, please kindly fax back to [phone] For questions please call [phone]
== END 2016-11-02 11:40 | disposition home or self-care (01) ==
LOC: ENRESERVDT → ENRESERVTM → C.EDB 21:38 → C.2T 23:44
PROVIDERS: ADMIT Internal Medicine; ATTEND Family Medicine
DX: R47.1 Dysarthria and anarthria (principal); R47.02 Dysphasia; I16.0 Hypertensive urgency; K21.9 Gastro-esophageal reflux disease without esophagitis; M81.0 Age-related osteoporosis without current pathological fracture; E78.00 Pure hypercholesterolemia, unspecified; E78.5 Hyperlipidemia, unspecified; Z86.73 Personal history of transient ischemic attack (TIA), and cerebral infarction without residual deficits; Z79.82 Long term (current) use of aspirin; Z80.0 Family history of malignant neoplasm of digestive organs; Z87.891 Personal history of nicotine dependence; Z79.899 Other long term (current) drug therapy

== ENCOUNTER → 2017-06-28 | Outpatient (CLI) | payer OTHER, MEDICARE ==
[~2017-06-28] VITALS: Ht 157.5 cm; Wt 56.4 kg
[~2017-06-28] MED LIST changes: +ATOR10TA88 PO; +CALC-51 PO; +COEN1CAP PO; +DIPH1TAB PO; +GLUC10007 PO; -HYDR-5688 PO; -LPT10 PO; +MELA5TAB20 PO; +MULT-513 PO; +OMEG10007 PO
[2017-06-28 14:34] VITALS: BP 150/66; Ht 157.5 cm; Wt 56.4 kg
== END | disposition home or self-care (01) ==
LOC: C.NEUR 13:20
PROVIDERS: ATTEND Internal Medicine Pulmonary Disease
DX: F51.04 Psychophysiologic insomnia (principal); E78.5 Hyperlipidemia, unspecified; K21.9 Gastro-esophageal reflux disease without esophagitis; R73.01 Impaired fasting glucose; K58.9 Irritable bowel syndrome, unspecified; E55.9 Vitamin D deficiency, unspecified

== ENCOUNTER → 2017-11-05 | Outpatient (CLI) | payer OTHER, MEDICARE ==
[~2017-11-05] MED LIST changes: +ATOR10TA82 PO; -ATOR10TA88 PO; -DIPH1TAB PO; +DIPH1TAB87 PO
[2017-11-05 10:29] LABS: CALCIUM 10.1 mg/dl (8.5-10.1); CREATININE 0.66 mg/dl (0.60-1.20)
== END | disposition home or self-care (01) ==
LOC: C.LAB1850 08:41
PROVIDERS: ATTEND Internal Medicine Rheumatology
DX: M81.0 Age-related osteoporosis without current pathological fracture (principal); E55.9 Vitamin D deficiency, unspecified; E61.8 Deficiency of other specified nutrient elements

== ENCOUNTER → 2017-11-08 | Outpatient (CLI) | payer OTHER, MEDICARE | END | disposition home or self-care (01) | LOC: C.LAB1850 11:46 | PROVIDERS: ATTEND Internal Medicine Rheumatology | DX: M81.0 Age-related osteoporosis without current pathological fracture (principal); E55.9 Vitamin D deficiency, unspecified; E61.8 Deficiency of other specified nutrient elements ==

== ENCOUNTER 2022-04-30 20:09 | Inpatient (IN) ==
[2022-04-30] MEDS ORDERED: ONDANSETRON INJ 2 MG/ML 2 ML VIAL IV STA ×2 (20:25→22:41)
[2022-04-30] MEDS ORDERED: SODIUM CHLORIDE 0.9% 1000ML 1,000 ML IV STA (20:25)
--- NOTE | 2022-04-30 20:41 | Emergency Department Note ---
Impression & Plan Nausea, Hyponatremia, Headache ED Provider Note Provider: Arebn Marques MD DATE OF SERVICE: 04/30/2022 CHIEF COMPLAINT: Vomiting, nausea, confusion HISTORY OF PRESENT ILLNESS: Patient is a 87-year-old female history of concussion in the past upper GI bleed presenting today coming down with recurrent nausea and vomiting today. Evidently has been more confused as well according to daughter. Patient's who she lives with was ill several days ago but is doing better and was milder in nature. Patient was well yesterday. Patient has had a concussion in February of this year the report but is normally more clear and the patient states she feels foggy. She denies significant abdominal pain but does report a headache today. No trauma or syncope reported. Tried some nacho earlier but just been vomiting it up. No significant diarrhea noted. No travel reported. Daughter was concerned for dehydration REVIEW OF SYSTEMS: A total of 10 review of systems was obtained and negative except as stated above in the HPI. PAST MEDICAL HISTORY: As noted above MEDICATIONS: Reviewed home medication list SOCIAL HISTORY: Lives with , no alcohol use reported PHYSICAL EXAM: GENERAL: alert and oriented in no acute distress on stretcher although occasionally takes her second to answer some slight word finding Head: normocephalic and atraumatic EYES: No injection, discharge or icterus. PERRL, EOMI. NECK: Trachea midline. Supple. ENT: Mucous membranes pink and moist. Pharynx without erythema or exudate. LUNGS: Airway patent. No retractions. Breath sounds clear with good air entry bilaterally. HEART: Regular rate and rhythm. No chest wall tenderness ABDOMEN: Soft and non-tender, without guarding or rebound. SKIN: Acyanotic, warm, dry, without rashes EXTREMITIES: Without swelling, tenderness or deformity NEUROLOGICAL: No focal deficits. No aphasia but occasionally she has some very brief second or last word finding. No facial droop or slurred speech. Normal strength and tone in the extremities. Sensation to gross touch normal. Ambulatory. EK bpm normal sinus rhythm incomplete right bundle branch block. No PVC or PAC. No acute ST segment elevation or depression with a QTC of 441. CONTINUOUS CARDIAC MONITORING: was ordered and showed a heart rate of 60s-80s bpm in normal sinus rhythm Patient's laboratory studies and imaging reviewed. Differential includes Infection, dehydration, metabolic abnormality, hypo/hyperglycemia, electrolyte disturbance, anemia, hypoxia, cardiac sources, intracerebral event, toxicologic, neurologic, as well as other pathologies. IMPRESSION/MEDICAL DECISION MAKING: No significant abdominal tenderness but some confusion today and nausea and vomiting. CT head and abdomen pelvis to be obtained exclude acute pathology here. Not having focal neurological deficit but again some confusion and word finding at times. No significant leukocytosis or anemia. Sick contact with who was ill several days ago although not severe. Given some IV fluids. Mild hyponatremia noted. No evidence of significant renal dysfunction and no evidence of hepatitis or pancreatitis. Troponin not elevated and EKG is reassur ing. CT reports are described below without significant findings. Given some Tylenol for headache. Minimal improvement. Discussed with daughter and patient findings at bedside. Given a bit of Toradol to help with headache as well. Given the continued confusion & continued nausea symptoms will pursue further care here at the hospital. Hospitalist contacted. DIAGNOSIS: Nausea and vomiting, confusion, mild hyponatremia DISPOSITION: Hospitalist will evaluate In discussion with the patient and daughter at bedside agree the patient would be full code. Preliminary Findings Only See Final Report For Complete Findings CT HEAD: No intracranial hemorrhage. No significant mass-effect or midline shift. No evidence for cortical infarct or appreciable alteration from the examination 11/02/2016. With the chart millimeters medium now segment the Chronic underlying parenchymal involutional changes and periventricular deep white matter presumed microvascular changes noted. The paranasal sinuses and mastoid or cells are well aerated. Radiologist: Sam Rondon MD Study ready at 22:02 and initial results transmitted at 22:11 Preliminary Findings Only See Final Report For Complete Findings CT ABDOMEN & PELVIS With Contrast: No evidence for bowel obstruction. Evaluation for bowel mucosal asymmetry is degraded by extensive respiratory artifact. No obvious abnormality noted. Diverticulosis in the sigmoid colon without obvious diverticulitis. No free intraperitoneal fluid or pneumoperitoneum. The liver, gallbladder, pancreas, spleen, adrenal glands and kidneys demonstrate no significant abnormality, accounting for respiratory artifact. The bladder is moderately distended without wall abnormalities or calcifications. A pessary is incidentally noted in the vagina. No acute osseous or significant overlying soft tissue abnormality. Radiologist: Sam Rondon MD Study ready at 22:07 and initial results transmitted at 22:16 Past Med/Surg History Social History Smoking Status: Never smoker Preferred Language: Citizen Of The [place] Feels Safe at Home: Yes Allergies Allergies Allergy/AdvReac Type Severity Reaction Status Date / Time pollen extracts Allergy Intermediate ITCHY Verified 04/30/22 21:44 EYES, SNEEZING, CONGESTION gluten AdvReac Intermediate Gastrointestinal Verified 04/30/22 21:44 Upset Home Meds Home Medications Medication Instructions Recorded Confirmed L.acidoph-L.rhamn-B.bifidum-B.long 1 tab PO TIDM 04/30/22 04/30/22 12.9 mg (2 billion cell) tablet, DR (Probiotic Acidophilus Biobeads) aspirin 81 mg tablet,delayed 81 mg PO Q OTHER DAY 04/30/22 04/30/22 release atorvastatin 10 mg tablet 10 mg PO DAILY 04/30/22 04/30/22 calcium carbonate 500 mg calcium 500 mg PO DAILY 04/30/22 04/30/22 (1,250 mg) tablet conjugated estrogens 0.625 mg/gram 0.625 mg vaginal 3XWK 04/30/22 04/30/22 vaginal cream (Premarin) diphenhydramine HCl 25 mg capsule 25 mg PO HS PRN Sleep 04/30/22 04/30/22 (Benadryl) hydrocortisone 2.5 % topical cream 1 applic topical BID PRN Skin 04/30/22 04/30/22 Irritation magnesium oxide 400 mg PO DAILY 04/30/22 04/30/22 polyethylene glycol 3350 17 17 g PO DAILY PRN Constipation 04/30/22 04/30/22 gram/dose oral powder (Miralax) propylene glycol 0.6 % eye drops 1 drp ophthalmic (eye) QID PRN Dry 04/30/22 04/30/22 (Systane Balance) Eyes riboflavin (vitamin B2) 400 mg 400 mg PO DAILY 04/30/22 04/30/22 tablet vitamins A,C,S-dxzi-[id number] 14,320 1 cap PO DAILY 04/30/22 04/30/22 unit-226 mg-200 unit capsule (PreserVision AREDS) Results & Data (ED) Vital Signs Vital Signs - 24 hr 04/30/22 20:10 04/30/22 20:37 04/30/22 20:38 Temperature 36.8 C Temperature Source Temporal Artery Scan Pulse Rate 81 Pulse Rate [Bilateral Apical] 76 Respiratory Rate 20 20 Respiratory Effort / Characteristics Non-Labored Spontaneous Respiratory Depth Normal Blood Pressure 140/75 Blood Pressure [Left Arm] 160/79 H Blood Pressure Mean 96 Blood Pressure Mean [Left Arm] 106 Pulse Oximetry 98 96 95 Oxygen Delivery Method Room Air Room Air Room Air Sepsis New/Unexplained Change in Mental Status N/A Sepsis Action Taken by Nursing No Action Required 04/30/22 21:31 04/30/22 22:57 04/30/22 23:49 Temperature Temperature Source Pulse Rate Pulse Rate [Bilateral Apical] 71 79 72 Respiratory Rate 20 20 20 Respiratory Effort / Characteristics Respiratory Depth Blood Pressure Blood Pressure [Left Arm] 141/68 H 133/74 121/76 Blood Pressure Mean Blood Pressure Mean [Left Arm] 92 93 91 Pulse Oximetry 93 96 93 Oxygen Delivery Method Room Air Room Air Sepsis New/Unexplained Change in Mental Status Sepsis Action Taken by Nursing Laboratory Data Result diagrams: 04/30/22 20:30 04/30/22 20:30 Lab Results 04/30/22 04/30/22 04/30/22 Range/Units 20:30 20:30 20:40 WBC 8.70 (4.8-10.8) K/ul RBC 4.66 (3.93-5.22) M/uL Hgb 13.5 (12.0-16.0) g/dl Hct 39.7 (34.1-44.9) % MCV 85.2 (80.0-100.0) fL MCH 29.0 (25.0-34.0) pg MCHC 34.0 (32.0-36.0) g/dL RDW Std Deviation 41.5 (36.4-46.3) fL RDW Coeff of Eva 13.3 (11.5-14.5) % Plt Count 206 (130-400) K/uL MPV 10.9 (9.4-12.3) fL Immature Gran % (Auto) 0.2 % Neut % (Auto) 83.4 % Lymph % (Auto) 10.2 % [place] % (Auto) 5.9 % Eos % (Auto) 0.0 % Baso % (Auto) 0.3 % Neut # (Auto) 7.25 H (1.4-6.5) K/uL Lymph # (Auto) 0.89 L (1.2-3.4) K/uL [place] # (Auto) 0.51 (0.24-0.82) K/uL Eos # (Auto) 0.00 (0-0.50) K/uL Baso # (Auto) 0.03 (0-0.2) K/uL Immature Gran # (Auto) 0.02 (0.00-0.02) K/uL Sodium 131 L (136-145) mmol/L Potassium 3.4 L (3.5-5.1) mmol/L Chloride 97 L (98-107) mmol/L Carbon Dioxide 23 (21-32) mmol/L Anion Gap 11 (3-11) BUN 13 (6-23) mg/dl Creatinine 0.60 (0.6-1.2) mg/dl Est Cr Clr Drug Dosing 52.2 ml/min Est GFR ( Amer) 93.7 ml/min Est GFR (Non-Af Amer) 80.8 ml/min BUN/Creatinine Ratio 21.7 H (10-20) Glucose 126 H (70-99(Fasting)) mg/dl Calcium 8.8 (8.5-10.1) mg/dl Magnesium 1.9 (1.7-2.4) mg/dl Total Bilirubin 0.6 (0.2-1.0) mg/dl AST 20 (13-39) U/L ALT 14 (7-52) U/L Alkaline Phosphatase 69 (34-104) U/L Troponin I High Sens 7.5 (0-14) pg/ml Total Protein 7.5 (6.0-8.3) gm/dl Albumin 4.2 (3.4-5.0) gm/dl Globulin 3.3 (2.5-4.0) gm/dl Albumin/Globulin Ratio 1.3 (0.9-2) Lipase 7 L (11-82) U/L Urine Color Urine Appearance (Clear) Urine pH (4.5-7.5) Ur Specific [place] (1.000-1.030) Urine Protein (Negative) Urine Glucose (UA) (Negative) Urine Ketones (Negative) Urine Blood (Negative) Urine Nitrite (Negative) Urine Bilirubin (Negative) Urine Urobilinogen (Negative) Ur Leukocyte Esterase (Negative) Urine WBC (Auto) (0-5) /hpf Urine RBC (Auto) (0-4) /hpf U Hyaline Cast (Auto) (0-5) /lpf U Epithel Cells (Auto) (0-5) /lpf Urine Bacteria (Auto) (Negative) SARS-CoV-2, RNA, NAAT NEGATIVE (NEGATIVE) 04/30/22 Range/Units 22:32 WBC (4.8-10.8) K/ul RBC (3.93-5.22) M/uL Hgb (12.0-16.0) g/dl Hct (34.1-44.9) % MCV (80.0-100.0) fL MCH (25.0-34.0) pg MCHC (32.0-36.0) g/dL RDW Std Deviation (36.4-46.3) fL RDW Coeff of Eva (11.5-14.5) % Plt Count (130-400) K/uL MPV (9.4-12.3) fL Immature Gran % (Auto) % Neut % (Auto) % Lymph % (Auto) % [place] % (Auto) % Eos % (Auto) % Baso % (Auto) % Neut # (Auto) (1.4-6.5) K/uL Lymph # (Auto) (1.2-3.4) K/uL [place] # (Auto) (0.24-0.82) K/uL Eos # (Auto) (0-0.50) K/uL Baso # (Auto) (0-0.2) K/uL Immature Gran # (Auto) (0.00-0.02) K/uL Sodium (136-145) mmol/L Potassium (3.5-5.1) mmol/L Chloride (98-107) mmol/L Carbon Dioxide (21-32) mmol/L Anion Gap (3-11) BUN (6-23) mg/dl Creatinine (0.6-1.2) mg/dl Est Cr Clr Drug Dosing ml/min Est GFR ( Amer) ml/min Est GFR (Non-Af Amer) ml/min BUN/Creatinine Ratio (10-20) Glucose (70-99(Fasting)) mg/dl Calcium (8.5-10.1) mg/dl Magnesium (1.7-2.4) mg/dl Total Bilirubin (0.2-1.0) mg/dl AST (13-39) U/L ALT (7-52) U/L Alkaline Phosphatase (34-104) U/L Troponin I High Sens (0-14) pg/ml Total Protein (6.0-8.3) gm/dl Albumin (3.4-5.0) gm/dl Globulin (2.5-4.0) gm/dl Albumin/Globulin Ratio (0.9-2) Lipase (11-82) U/L Urine Color Yellow Urine Appearance Clear (Clear) Urine pH 7.0 (4.5-7.5) Ur Specific [place] 1.026 (1.000-1.030) Urine Protein Negative (Negative) Urine Glucose (UA) Negative (Negative) Urine Ketones 1+ H (Negative) Urine Blood 1+ H (Negative) Urine Nitrite Negative (Negative) Urine Bilirubin Negative (Negative) Urine Urobilinogen Negative (Negative) Ur Leukocyte Esterase Negative (Negative) Urine WBC (Auto) 1-5 (0-5) /hpf Urine RBC (Auto) 5-10 H (0-4) /hpf U Hyaline Cast (Auto) 0 (0-5) /lpf U Epithel Cells (Auto) 5-10 H (0-5) /lpf Urine Bacteria (Auto) Negative (Negative) SARS-CoV-2, RNA, NAAT (NEGATIVE) Administered Medications Discontinued Medications Acetaminophen (Acetaminophen 325 Mg Tab) 650 mg PO NOW STA Stop: 04/30/22 21:59 Last Admin: 04/30/22 22:04 Dose: 650 mg Documented By: TROY Sodium Chloride (Nss 1000ml) 1,000 mls @ 999 mls/hr IV .Q1H1M STA Stop: 04/30/22 21:25 Last Infusion: 04/30/22 22:31 Dose: 0 mls/hr Documented By: Admin: 04/30/22 20:35 Dose: 999 mls/hr Documented By: TROY Famotidine (Pepcid 20mg Iv Push) 20 mg in 5 mls @ 2.5 mls/min IV NOW STA Stop: 04/30/22 22:43 Last Admin: 04/30/22 22:53 Dose: 2.5 mls/min Documented By: TROY Ioversol (Optiray 320 100ml) 94 ml IV ONCE ONE Stop: 04/30/22 21:52 Last Admin: 04/30/22 21:51 Dose: 94 ml Documented By: RHD Ketorolac Tromethamine (Ketorolac Tromethamine 15 Mg/Ml Vial) 10 mg IV NOW ONE Stop: 04/30/22 22:43 Last Admin: 04/30/22 22:53 Dose: 10 mg Documented By: TROY Ondansetron HCl (Ondansetron Inj 2 Mg/Ml 2 Ml Vial) 4 mg IV NOW STA Stop: 04/30/22 20:26 Last Admin: 04/30/22 20:36 Dose: 4 mg Documented By: TROY Ondansetron HCl (Ondansetron Inj 2 Mg/Ml 2 Ml Vial) 4 mg IV NOW STA Stop: 04/30/22 22:42 Last Admin: 04/30/22 22:52 Dose: 4 mg Documented By: TROY Discharge Plan Visit Data Chief Complaint: Illness Stated Complaint: SICK ALL DAY, VOMITING, DEHYDRATED ED Provider: Arben Marques Discharge Problem: Nausea, Hyponatremia, Headache Patient Disposition: Being Evaluated by Hospitalist Forms Stand Alone Forms: [facility] Prescriptions Prescriptions: No Action atorvastatin 10 mg Tablet 10 mg PO DAILY aspirin 81 mg Tablet,Delayed Release (Dr/Ec) 81 mg PO Q OTHER DAY calcium carbonate [Calcium 500] 500 mg calcium (1,250 mg) Tablet 500 mg PO DAILY diphenhydramine HCl [Benadryl] 25 mg Capsule 25 mg PO HS PRN (Reason: Sleep) Premarin 0.625 mg/gram Cream 0.625 mg VAGINAL 3XWK Rx Instructions: MON, WED, & FRI. hydrocortisone 2.5 % Cream 1 applic TOPICAL BID PRN (Reason: Skin Irritation) polyethylene glycol 3350 [Miralax] 17 gram/dose Powder 17 g PO DAILY PRN (Reason: Constipation) PreserVision AREDS 14,320-226-200 [id number] Capsule 1 cap PO DAILY Systane Balance 0.6 % Drops 1 drp OPHTHALMIC (EYE) QID PRN (Reason: Dry Eyes) Probiotic Acidophilus Biobeads 12.9 mg (2 billion cell) Tablet,Delayed Release (Dr/Ec) 1 tab PO TIDM riboflavin (vitamin B2) 400 mg Tablet 400 mg PO DAILY magnesium oxide 400 mg magnesium Tablet 400 mg PO DAILY Referrals Referrals: Yahir Martinez DO [Primary Care Provider] -
[2022-04-30 20:48] LABS: Basophils # (auto) 0.03 K/uL (0-0.2); Basophils % (auto) 0.3 %; Hematocrit (blood only) 39.7 % (34.1-44.9); Hemoglobin 13.5 g/dl (12.0-16.0); Immature Granulocytes # (auto) 0.02 K/uL (0.00-0.02); Immature Granulocytes % (auto) 0.2 %; Lymphocytes # (auto) 0.89 K/uL (1.2-3.4); Lymphocytes % (auto) 10.2 %; Mean Corpuscular Volume 85.2 fL (80.0-100.0); Mean Platelet Volume 10.9 fL (9.4-12.3); Monocytes # (auto) 0.51 K/uL (0.24-0.82); Monocytes % (auto) 5.9 %; Neutrophils # (auto) 7.25 K/uL (1.4-6.5); Neutrophils % (auto) 83.4 %; Platelet Count 206 K/uL (130-400); RDW Coefficient of Variation 13.3 % (11.5-14.5); RDW Standard Deviation 41.5 fL (36.4-46.3); Red Blood Count 4.66 M/uL (3.93-5.22)
[2022-04-30 21:11] LABS: Albumin Globulin Ratio 1.3 (0.9-2); Albumin Level 4.2 gm/dl (3.4-5.0); BUN Creatinine Ratio 21.7 (10-20); Bilirubin,Total 0.6 mg/dl (0.2-1.0); Calcium 8.8 mg/dl (8.5-10.1); Creatinine Clr Calc Pharmacy 52.2 ml/min; Est GFR (African American) 93.7 ml/min; Est GFR (Non-African American) 80.8 ml/min; Globulin 3.3 gm/dl (2.5-4.0); Magnesium 1.9 mg/dl (1.7-2.4); Potassium 3.4 mmol/L (3.5-5.1); Total Protein 7.5 gm/dl (6.0-8.3)
[2022-04-30 21:14] LABS: Troponin I High Sensitivity 7.5 pg/ml (0-14)
[2022-04-30] MEDS ORDERED: OPTIRAY 320 100ml IV ONE (21:51)
[2022-04-30] MEDS ORDERED: ACETAMINOPHEN 325 MG TAB PO STA (21:58)
[2022-04-30] MEDS ORDERED: KETOROLAC TROMETHAMINE 15 MG/ML VIAL IV ONE (22:42)
[2022-04-30] MEDS ORDERED: FAMOTIDINE 20MG IV PUSH 20 MG/5 ML SYR IV STA (22:42)
[2022-04-30 22:52] LABS: Appearance Urine Clear (Clear); Bacteria Urine Automated Negative (Negative); Bilirubin Urine Negative (Negative); Blood Urine 1+ (Negative); Cast Urine Automated 0 /lpf (0-5); Color Urine Yellow; Glucose Urine UA Negative (Negative); Ketones Urine 1+ (Negative); Leukocyte Esterase Urine Negative (Negative); Nitrite Urine Negative (Negative); Protein Urine Negative (Negative); Specific Gravity Urine 1.026 (1.000-1.030); Urobilinogen Urine Negative (Negative)
[2022-05-01] MEDS ORDERED: POTASSIUM CHLORIDE CRTAB 20 MEQ TABCR PO STA (02:43)
[2022-05-01] MEDS ORDERED: HYDROCORTISONE 2.5% CR 30 GM TUBE EXT PRN (02:43)
[2022-05-01] MEDS ORDERED: ACETAMINOPHEN 325 MG TAB PO PRN (02:43)
[2022-05-01] MEDS ORDERED: ONDANSETRON INJ 2 MG/ML 2 ML VIAL IV PRN (02:43)
[2022-05-01] MEDS ORDERED: diphenhydrAMINE Capsule 25 MG CAP PO PRN (02:43)
[2022-05-01] MEDS: D5W AND 1/2NSS 1,000 ML IV SCH ×2 (03:53→14:43)
[2022-05-01 06:44] LABS: Basophils # (auto) 0.06 K/uL (0-0.2); Basophils % (auto) 0.7 %; Eosinophils # (auto) 0.12 K/uL (0-0.50); Eosinophils % (auto) 1.5 %; Hematocrit (blood only) 34.9 % (34.1-44.9); Hemoglobin 11.8 g/dl (12.0-16.0); Immature Granulocytes # (auto) 0.02 K/uL (0.00-0.02); Immature Granulocytes % (auto) 0.2 %; Lymphocytes # (auto) 1.92 K/uL (1.2-3.4); Lymphocytes % (auto) 23.4 %; Mean Corpuscular Hemoglobin 29.1 pg (25.0-34.0); Mean Corpuscular Hgb Conc 33.8 g/dL (32.0-36.0); Mean Corpuscular Volume 86.2 fL (80.0-100.0); Mean Platelet Volume 10.4 fL (9.4-12.3); Monocytes # (auto) 1.14 K/uL (0.24-0.82); Monocytes % (auto) 13.9 %; Neutrophils # (auto) 4.95 K/uL (1.4-6.5); Neutrophils % (auto) 60.3 %; Platelet Count 181 K/uL (130-400); RDW Coefficient of Variation 13.4 % (11.5-14.5); RDW Standard Deviation 42.2 fL (36.4-46.3); Red Blood Count 4.05 M/uL (3.93-5.22); White Blood Count 8.21 K/ul (4.8-10.8)
[2022-05-01 07:08] LABS: BUN Creatinine Ratio 17.7 (10-20); Creatinine Clr Calc Pharmacy 46.4 ml/min; Est GFR (African American) 92.7 ml/min; Est GFR (Non-African American) 79.9 ml/min; Potassium 3.2 mmol/L (3.5-5.1)
--- NOTE | 2022-05-01 07:14 | CT Scan Report ---
HEAD CT NONCONTRAST CT DOSE: 818.11 mGy.cm HISTORY: confusion, vomiting TECHNIQUE: Multiaxial CT images of the head were performed without the use of intravenous contrast. A utomated exposure control was utilized for this study. A dose lowering technique was utilized adheri ng to the principles of ALARA. Comparison: Head CT 11/01/2016. Findings: The paranasal sinuses and mastoid air cells are clear. The calvarium and skull base are int act. There is no mass, hematoma, midline shift, acute infarct. White matter hypodensity is nonspecifi c but suggestive of microvascular ischemic change. The ventricles and sulci demonstrate mild age-rela susan involutional changes. Impression: No acute intracranial abnormality. Atrophy and microvascular ischemic changes. ACT 112: Negative or not required by law. Electronically signed by: Umang De La O M.D. 05/01/2022 7:13 AM
--- NOTE | 2022-05-01 07:24 | CT Scan Report ---
CT abd pelvis IV con only CLINICAL HISTORY: vomiting, confusion COMPARISON STUDY: No previous studies for comparison. CT DOSE: TECHNIQUE: Standard CT of the Abdomen and Pelvis was performed with IV contrast. A dose lowering graciela hnique was utilized adhering to the principles of ALARA. Contrast Volume: Optiray 320, 94 ml. The patient did not receive oral contrast. FINDINGS: Lung base: The lung bases are clear. The heart is mildly enlarged. Abdominal cavity: There is no evidence for abdominal mass, adenopathy or ascites. Liver: There is homogeneous attenuation of the liver parenchyma. There is no evidence for enhancing m ass lesion. Spleen: There is homogeneous attenuation of the splenic parenchyma. There is no enhancing mass lesion . Pancreas: There is homogeneous attenuation of the pancreatic parenchyma. There is no evidence for mas s lesion or peripancreatic fluid collection. Gall Bladder: The gallbladder is well distended with no evidence for intraluminal calculi, wall thick ening or pericholecystic edema. Adrenal glands: The adrenal glands are normal in size and attenuation. There is no evidence for enhan cing mass lesion. Kidneys: There is homogeneous attenuation of the renal parenchyma bilaterally. There is no evidence f or renal calculus or hydronephrosis. There is no evidence for enhancing mass. Bowel: The bowel loops are normally placed within the abdomen and pelvis without evidence for dilatat ion or obstruction. There is no evidence for mass lesion. There is sigmoid diverticulosis without leesa dence for diverticulitis. There are no inflammatory changes present. There is no evidence for free ai r. Bladder: The bladder is within normal limits with no evidence for focal mass, calculus or diverticulu m. A pessary is in place. : There is no evidence for pelvic mass or adenopathy. There is no evidence for pelvic ascites. Vasculature: There is no evidence for aneurysmal dilatation of the abdominal aorta. Atherosclerotic c alcification is present. Osseous structures: There is no acute osseous pathology. Degenerative changes are seen within the spi ne. IMPRESSION: 1. No acute intra-abdominal or pelvic abnormality. 2. Diverticulosis without evidence for diverticulitis. 3. Additional nonacute findings are delineated above. ACT 112: Negative or not required by law. Electronically signed by: Perico Serna M.D. 05/01/2022 7:23 AM
--- NOTE | 2022-05-01 07:49 | History and Physical Report ---
DATE OF ADMISSION: 05/01/2022. CHIEF COMPLAINT: Nausea, vomiting, diarrhea. HISTORY OF PRESENT ILLNESS: This is an 87-year-old female with past medical history significant for dyslipidemia,Non allergic rhinitis,, history of cystocele, history of tick bite, history of senile osteoporosis, sensorineural hearing loss, bilateral dry eyes, insomnia. Lives with her . Presents with nausea, vomiting, and diarrhea starting today. Feeling sick, one episode of vomiting and four to five episodes of diarrhea. Denies any fever or chills. No abdominal pain. No chest pain, no shortness of breath, no cough, no runny nose, no sore throat, no headache, no blurred visions. Currently, resting comfortably, hemodynamically stable. She states her got sick, it was a similar kind of sickness, but it was mild. She is COVID vaccinated and boosted as per the patient. ALLERGIES: POLLEN EXTRACTS, GLUTEN. PAST MEDICAL HISTORY: As mentioned above. PAST SURGICAL HISTORY: Right breast biopsy, colonoscopy, bilaterally detached retina repair, dilatation and curettage, EGDs, EGD with biopsy, diagnostic hysteroscopy, injection of the eye drug, cataract surgery. MEDICATIONS: The patient is on aspirin 81 mg p.o. every other day, atorvastatin 10 mg p.o. daily, calcium carbonate 500 mg p.o. daily, Premarin 0.65 mg vaginal 3 times a week, Benadryl 25 mg p.o. at bedtime p.r.n., probiotics 1 tablet p.o. t.i.d., magnesium oxide 400 mg p.o. daily, MiraLax 17 g p.o. daily p.r.n., propylene glycol one drop ophthalmic q.i.d. p.r.n., vitamin B2 400 mg p.o. daily, PreserVision AREDS one capsule p.o. daily. FAMILY HISTORY: Significant for daughter has allergies; mother has cataracts, pancreatic cancer; brother has colon cancer. SOCIAL HISTORY: . No smoking. Alcohol, rarely. No drug use. REVIEW OF SYSTEMS: As per HPI. Rest of the review of systems is negative. PHYSICAL EXAMINATION: GENERAL: The patient is old and frail, not in acute distress. VITAL SIGNS: Temperature 36.8, pulse 74, respiratory rate 20, blood pressure 113/47, oxygen 96% on room air. HEENT: Pupils equal, round and reactive to light. Oral mucosa moist. NECK: No JVD, no neck masses. CARDIOVASCULAR: S1 and S2 heard. Regular rate and rhythm. No murmur, no gallop. RESPIRATORY SYSTEM: Normal AP diameter. No accessory muscle use. No wheezing, no crackles. ABDOMEN: Soft, bowel sounds present, nontender, no distention. CENTRAL NERVOUS SYSTEM: Alert and awake. Speech is clear. No facial droop. Insight is okay. Obeys simple commands. Moves extremities. EXTREMITIES: No edema, no erythema. LABORATORY DATA: WBC 8.7, hemoglobin 13.5, hematocrit 39.7, platelets 206. Sodium 131, potassium 3.4, chloride 97, bicarbonate 23, BUN 13, creatinine 0.6, serum glucose 126, calcium 8.8, magnesium 1.9, total bilirubin 0.6, AST 20, ALT 14, alkaline phosphatase 69, lipase 7. Urinalysis, +1 ketones. SARS-CoV-2 rapid test negative. IMAGING DATA: CT of the head, preliminary report unremarkable. CT abdomen and pelvis with contrast, preliminary report, no acute findings. EKG: Normal sinus rhythm at a rate of 77, incomplete right bundle-branch block, no significant change was found. ASSESSMENT AND PLAN: This is an 87-year-old female who presents with nausea, vomiting, and diarrhea. 1. Nausea, vomiting, and diarrhea, possible gastroenteritis: Will follow the stool cultures, stool for C. diff, and IV fluids. Will keep her n.p.o. for now, IV antiemetics. Monitor in the medical floor. The patient says her had similar symptoms, but milder few days back. 2. Hyperlipidemia: Continue statin. 3. Deep venous thrombosis prophylaxis: Sequential compression devices and heparin subcutaneous. DISPOSITION: Closely monitor in the medical floor. PT/OT prior to discharge. Social service to help with discharge planning. Level 1 full code. Job ID: [id number]
[2022-05-01] MEDS: CALCIUM CARBONATE 500 MG CHEWABLE TAB PO SCH (08:30)
[2022-05-01] MEDS: PREMARIN VAG CRM 14 APPLN/30 GM TUBE PV SCH (08:31)
[2022-05-01] MEDS: CEROVITE ADV FORMULA TAB PO SCH (08:39)
[2022-05-01] MEDS: MAGNESIUM OXIDE 400 MG TAB PO SCH (08:39)
[2022-05-01] MEDS: ADVANCED PROBIOTIC 1250 MG CAPSULE PO SCH (08:39)
[2022-05-01] MEDS ORDERED: Nursing to Pharmacy Communication SCH (08:45)
[2022-05-01] MEDS ORDERED: ASPIRIN 81 MG ECTAB PO SCH ×2 (09:00→21:00)
[2022-05-01] MEDS ORDERED: ARTIFICIAL TEARS OP PRN (09:00)
[2022-05-01] MEDS ORDERED: HEPARIN SOD 5,000 UNIT/0.5 ML VIAL SQ SCH (09:00)
[2022-05-01] MEDS ORDERED: ATORVASTATIN 10 MG TAB PO SCH (09:00)
[2022-05-01] MEDS: POTASSIUM CHLORIDE PWD 20 MEQ PACK PO SCH ×2 (09:47→14:44)
--- NOTE | 2022-05-01 11:36 | Hospitalist Progress Note ---
Date of Service May 01, 2022 Assessment & Plan (1) Encephalopathy: Plan: Unclear etiology however patient recently had a concussion with reinjury to her head. Shortly after she became sick with this GI illness. One explanation may be that her concussion syndrome worsened with the insult from the infection. Stroke is always a possibility, or developing head bleed. Patient's encephalopathy appears improved per family but is still significantly off her baseline. She has had no fever and does not appear acutely infected. There is no evidence of leukocytosis. CT head last night in the ER did not reveal any acute intracranial abnormalities. Atrophy and microvascular ischemic changes were noted. We will continue the work-up for stroke with an MRI and MRA of the head and neck. Will check B12 TSH and folate in the morning. Will obtain CXR to ensure no evidence of pneumonia. UA was clear on admission. We will consult PT and OT. We will also consult neurology for additional thoughts. Her symptoms are nonfocal except for some issues with word finding difficulty but that is intermittent. Suspect some type of global amnesia. (2) Acute gastroenteritis: Plan: Stool studies are still pending. No overt vomiting or diarrhea today. She is now tolerating p.o. and looking better. Patient is feeling better. (3) Hyponatremia: Plan: Secondary to #2. Reassess tomorrow after patient has eaten more. (4) Hypokalemia: Plan: Secondary to GI losses. Replace with supplementation and repeat in a.m. (5) DVT prophylaxis: Plan: Lovenox Full code Disposition-Home pending PT/OT recommendations, clinical improvement and confusion and after patient is reliably tolerating solid food. Molly Bacon DO [facility] Hospitalist Admission and Anticipated Discharge Date Admission Date: May 01, 2022 Subjective 87 yo F presents with recurrent nausea and vomiting. The patient states she has been off and per prior notes she has been confused per daughter. Her was ill several days ago with diarrhea but is improved. Patient denies any GI upset and is open for clear liquid diet this morning. CT of the head and abdomen pelvis revealed no evidence of pathology to explain the vomiting. She has no focal neurologic deficit but is still confused today. She cannot give me an accurate date and feels it is 2011. Today she overall states that she is better. She remains confused Went back to bedside around 5pm and touched base with her again with family present. Patient is more clearly having trouble with word finding but her speech is fine. She also is having trouble transcribing numbers onto a piece of paper. She had head trauma hitting her head against a rock in February and again hit her head more recently. No headache, but did have one yesterday. Review of Systems Review of Systems: All systems reviewed negative except as indicated above. Physical Exam Physical Exam: CONSTITUTIONAL: WNWD, vitals as above, generally well- appearing, NAD EYES: normal conjunctivae, no scleral icterus ENT: external ear and nose normal, NECK: trachea midline, RESPIRATORY: clear to auscultation bilaterally, no crackles, rales or wheezes, normal respiratory effort CARDIOVASCULAR: regular rate and rhythm, S1 and 2 heard without murmurs, gallops or rubs, no JVD, no peripheral edema CHEST: inspection of chest was normal GASTROINTESTINAL: normal bowel sounds, soft, nontender, ND, no guarding MUSCULOSKELETAL: strength 5/5 throughout, head is normocephalic and atraumatic, neck supple, normal palpation of chest wall without tenderness SKIN: warm and dry NEUROLOGIC: CN 2-12 intact, no sensory deficit, normal cognition, normal speech but some issues finding her words, no tremor, could not perform rapid alternating movements, but this seemed to be because she couldn't understand the instruction. Finger to nose was slow but eventually she got it, and heel to [place] was normal. Gait was not assessed 2/2 fall risk. She was able to move independently around the bed. DTR 2+ in knees bilaterally. PSYCHIATRIC: alert cooperative and oriented to person and place. Thought th year was 2011. Euthymic mood, makes good eye contact, language grossly intact, memory seems to be slow--difficulty remembering yesterdays events. Results & Data Results & Data ([facility]) Vital Signs (Past 12 Hours) Vital Signs Temp Pulse Resp BP Pulse Ox O2 Del Method 05/01/22 07:30 37.1 C 59 L 16 115/62 97 Room Air 05/01/22 02:43 36.9 C 60 18 133/63 95 Room Air 05/01/22 03:11 36.9 C 60 16 133/63 95 Room Air 05/01/22 01:56 71 20 122/58 L 98 Room Air 05/01/22 01:10 74 20 113/47 L 96 Room Air 04/30/22 23:49 72 20 121/76 93 Room Air Laboratory Results Short CBC 04/30/22 05/01/22 Range/Units 20:30 06:38 WBC 8.70 8.21 (4.8-10.8) K/ul Hgb 13.5 11.8 L (12.0-16.0) g/dl Hct 39.7 34.9 (34.1-44.9) % Plt Count 206 181 (130-400) K/uL BMP 04/30/22 05/01/22 20:30 06:38 Sodium 131 L 131 L Potassium 3.4 L 3.2 L Chloride 97 L 101 Carbon Dioxide 23 25 BUN 13 11 Creatinine 0.60 0.62 Glucose 126 H 114 H Calcium 8.8 8.0 L Liver Function 04/30/22 Range/Units 20:30 Total Bilirubin 0.6 (0.2-1.0) mg/dl AST 20 (13-39) U/L ALT 14 (7-52) U/L Alkaline Phosphatase 69 (34-104) U/L Albumin 4.2 (3.4-5.0) gm/dl Urine 04/30/22 Range/Units 22:32 Urine Color Yellow Urine Appearance Clear (Clear) Urine pH 7.0 (4.5-7.5) Ur Specific [place] 1.026 (1.000-1.030) Urine Protein Negative (Negative) Urine Glucose (UA) Negative (Negative) Diagnostic Findings Abdomen/Pelvis CT 04/30/22 20:38 CT abd pelvis IV con only CLINICAL HISTORY: vomiting, confusion COMPARISON STUDY: No previous studies for comparison. CT DOSE: TECHNIQUE: Standard CT of the Abdomen and Pelvis was performed with IV contrast. A dose lowering technique was utilized adhering to the principles of ALARA. Contrast Volume: Optiray 320, 94 ml. The patient did not receive oral contrast. FINDINGS: Lung base: The lung bases are clear. The heart is mildly enlarged. Abdominal cavity: There is no evidence for abdominal mass, adenopathy or ascites. Liver: There is homogeneous attenuation of the liver parenchyma. There is no evidence for enhancing mass lesion. Spleen: There is homogeneous attenuation of the splenic parenchyma. There is no enhancing mass lesion. Pancreas: There is homogeneous attenuation of the pancreatic parenchyma. There is no evidence for mass lesion or peripancreatic fluid collection. Gall Bladder: The gallbladder is well distended with no evidence for intraluminal calculi, wall thickening or pericholecystic edema. Adrenal glands: The adrenal glands are normal in size and attenuation. There is no evidence for enhancing mass lesion. Kidneys: There is homogeneous attenuation of the renal parenchyma bilaterally. There is no evidence for renal calculus or hydronephrosis. There is no evidence for enhancing mass. Bowel: The bowel loops are normally placed within the abdomen and pelvis without evidence for dilatation or obstruction. There is no evidence for mass lesion. There is sigmoid diverticulosis without evidence for diverticulitis. There are no inflammatory changes present. There is no evidence for free air. Bladder: The bladder is within normal limits with no evidence for focal mass, calculus or diverticulum. A pessary is in place. : There is no evidence for pelvic mass or adenopathy. There is no evidence for pelvic ascites. Vasculature: There is no evidence for aneurysmal dilatation of the abdominal aorta. Atherosclerotic calcification is present. Osseous structures: There is no acute osseous pathology. Degenerative changes are seen within the spine. IMPRESSION: 1. No acute intra-abdominal or pelvic abnormality. 2. Diverticulosis without evidence for diverticulitis. 3. Additional nonacute findings are delineated above. ACT 112: Negative or not required by law. Electronically signed by: Perico Serna M.D. 05/01/2022 7:[address] 04/30/22 20:[address] DOSE: 818.11 mGy.cm HISTORY: confusion, vomiting TECHNIQUE: Multiaxial CT images of the head were performed without the use of intravenous contrast. Automated exposure control was utilized for this study. A dose lowering technique was utilized adhering to the principles of ALARA. Comparison: Head CT 11/01/2016. Findings: The paranasal sinuses and mastoid air cells are clear. The calvarium and skull base are intact. There is no mass, hematoma, midline shift, acute infarct. White matter hypodensity is nonspecific but suggestive of microvascular ischemic change. The ventricles and sulci demonstrate mild age-related involutional changes. Impression: No acute intracranial abnormality. Atrophy and microvascular ischemic changes. ACT 112: Negative or not required by law. Electronically signed by: Umang De La O M.D. 05/01/2022 7:13 AM Medications Administered Current Inpatient Medications Acetaminophen (Acetaminophen 325 Mg Tab) 650 mg PO Q4H PRN PRN Reason: pain/fever Stop: 05/31/22 02:42 Artificial Tears (Artificial Tears) 1 drops OP QID PRN PRN Reason: dry eyes Stop: 05/31/22 08:59 Aspirin (Aspirin 81 Mg Ectab) 81 mg PO Q48H MALATHI Stop: 05/31/22 20:59 Atorvastatin Calcium (Atorvastatin 10 Mg Tab) 10 mg PO PM MALATHI Stop: 05/31/22 20:59 Calcium Carbonate (Calcium Carbonate 500 Mg Chewable Tab) 500 mg PO DAILY MALATHI Stop: 05/31/22 08:59 Last Admin: 05/01/22 08:30 Dose: Not Given Diphenhydramine HCl (Diphenhydramine Capsule 25 Mg Cap) 25 mg PO HS PRN PRN Reason: Sleep Stop: 05/31/22 02:42 Estrogens Conjugated (Premarin Vag Crm 14 Appln/30 Gm Tube) 0.5 appln PV MoWeFr@0900 [facility] Stop: 05/31/22 08:59 Last Admin: 05/01/22 08:31 Dose: Not Given Hydrocortisone (Hydrocortisone 2.5% Cr 30 Gm Tube) 1 appln EXT BID PRN PRN Reason: Skin Irritation Stop: 05/31/22 02:42 Dextrose/Sodium Chloride (D5w And 1/2nss) 1,000 mls @ 75 mls/hr IV .[id number] [facility] Stop: 05/31/22 02:42 Last Infusion: 05/01/22 09:45 Dose: 75 mls/hr Lactobacillus Acidophilus (Advanced Probiotic 1250 Mg Capsule) 2 cap PO DAILY MALATHI Stop: 05/31/22 08:59 Last Admin: 05/01/22 08:39 Dose: Not Given Magnesium Oxide (Magnesium Oxide 400 Mg Tab) 400 mg PO DAILY MALATHI Stop: 05/31/22 08:59 Last Admin: 05/01/22 08:39 Dose: Not Given Miscellaneous (Order Awaiting Action: Riboflavin (Vitamin B2) 400 Mg Tablet) 1 each N/A QS MALATHI Stop: 05/31/22 07:59 Last Admin: 05/01/22 08:28 Dose: Not Given Multivitamins/Minerals (Cerovite Adv Formula Tab) 1 tab PO DAILY [facility] Stop: 05/31/22 08:59 Last Admin: 05/01/22 08:39 Dose: Not Given Ondansetron HCl (Ondansetron Inj 2 Mg/Ml 2 Ml Vial) 4 mg IV Q6H PRN PRN Reason: Nausea Stop: 05/31/22 02:42 Potassium Chloride (Potassium Chloride Pwd 20 Meq Pack) 40 meq PO Q6H MALATHI Stop: 05/01/22 14:46 Last Admin: 05/01/22 09:47 Dose: 40 meq
--- NOTE | 2022-05-01 12:44 | Electrocardiogram Report ---
Test Reason : Blood Pressure : / mmHG Vent. Rate : 077 BPM Atrial Rate : 077 BPM P-R Int : 180 ms QRS Dur : 100 ms QT Int : 390 ms P-R-T Axes : 040 -20 025 degrees QTc Int : 441 ms Normal sinus rhythm Low voltage in precordial leads Borderline ECG When compared with ECG of 01-NOV-2016 21:52, No significant change was found Confirmed by Charles Francisco ([id number]) on 05/01/2022 12:43:41 PM Referred By: REFERRED SELF Confirmed By:Charles Francisco
[2022-05-01] MEDS ORDERED: PHARMACIST DISCHARGE MED REC CONSULT PRN (17:40)
--- NOTE | 2022-05-01 19:44 | XRay Report ---
SINGLE VIEW CHEST CLINICAL HISTORY: Change in mental status. Recent illness FINDINGS: An AP, portable, upright chest radiograph is compared to study dated 05/17/2015. Correlation is made with abdominal CT performed the same day 04/30/2022. The heart is enlarged noting atherosclero tic calcification of the thoracic aorta. Pulmonary vasculature is noncongested. Chronic interstitial thickening is similar to previous. Dependent airspace opacities are consistent with scarring/atelecta sis when correlated with today's abdominal CT. No airspace consolidation typical for pneumonia, large pleural effusion, or pneumothorax is seen. The skeletal structures are osteopenic. The bony thorax i s grossly intact. IMPRESSION: 1. Cardiomegaly without radiographic evidence of congestive failure. 2. No airspace consolidation or pleural effusion is identified. ACT 112: Negative or not required by law. Electronically signed by: Bebeto Baires M.D. 05/01/2022 7:43 PM
[2022-05-01] MEDS: ATORVASTATIN 10 MG TAB PO SCH (21:17)
[2022-05-02 07:29] LABS: Hematocrit (blood only) 37.6 % (34.1-44.9); Hemoglobin 12.8 g/dl (12.0-16.0); Mean Corpuscular Hemoglobin 28.9 pg (25.0-34.0); Mean Corpuscular Volume 84.9 fL (80.0-100.0); Platelet Count 199 K/uL (130-400); RDW Coefficient of Variation 13.6 % (11.5-14.5); RDW Standard Deviation 42.4 fL (36.4-46.3); Red Blood Count 4.43 M/uL (3.93-5.22); White Blood Count 5.97 K/ul (4.8-10.8)
[2022-05-02 07:49] LABS: BUN Creatinine Ratio 16.4 (10-20); Calcium 8.4 mg/dl (8.5-10.1); Chol HDL Ratio 3.5 (0-5); Creatinine Clr Calc Pharmacy 47.2 ml/min; Est GFR (African American) 93.2 ml/min; Est GFR (Non-African American) 80.4 ml/min; Phosphorus 2.4 mg/dl (2.5-4.9); Potassium 3.6 mmol/L (3.5-5.1)
[2022-05-02 07:57] LABS: Estimated Average Glucose 126 mg/dl
[2022-05-02 08:07] LABS: Folate (Folic Acid) > 22.30 ng/ml (>5.38)
[2022-05-02 08:08] LABS: Vitamin B12 229 pg/ml (180-914)
[2022-05-02] MEDS: CEROVITE ADV FORMULA TAB PO SCH (09:45)
[2022-05-02] MEDS: MAGNESIUM OXIDE 400 MG TAB PO SCH (09:45)
[2022-05-02] MEDS: CALCIUM CARBONATE 500 MG CHEWABLE TAB PO SCH (09:46)
[2022-05-02] MEDS: ADVANCED PROBIOTIC 1250 MG CAPSULE PO SCH (09:46)
--- NOTE | 2022-05-02 12:28 | Neurology Consultation ---
Date of Consultation May 02, 2022 Assessment & Plan (1) Encephalopathy: 1. acute illness 2. CT head no acute finding 3. MRI brain ordered but not done ? whether is needed at this point since she is doing well 4. PT/OT for discharge needs 5. continue to monitor intake - reports she was able to eat today without vomiting, minimal nausea. no follow up with neurology at this point will see her PRN (2) Acute medical illness: 1. improving Supervising Physician Co-Signing Physician Notes I have seen and discussed above patient with Dr Chaya Rodgers, neurologan nPatient seen and examined. Patient reports of fall from a significant height about 2 months ago after which she had some difficulty with cognition and word finding which resolved. She was ill for 1 day with mild nausea and vomiting decreased intake. During that time her noted that she was dysarthric mildly confused and had difficulty word finding. She also had difficulty with numbers. No facial droop or asymmetric weakness was noted. She improved here with fluids spheric. She has no prior history of stroke on exam her speech is mildly dysarthric she is mildly hesitant speech although her repetitions and naming and three-step commands appear normal. There is no obvious asymmetric weakness my clinical impression is that she was likely encephalopathic related to dehydration and illness. She is improved with hydration. I think given some minor ongoing difficulty with word finding and mild dysarthria that it would be appropriate for her to have an MRI and an MRA with further stroke evaluation if the imaging shows a an infarct. 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 We will follow-up on the results of the MRI. Chaya oRdgers MD History of Present Illness Reason for Consultation: encephalopathy recent concussion Requesting Physician: Molly Bacon DO Attending Physician: Molly Bacon DO History of Present Illness Pricila is an 87 year old female with PMH-HLD, ,Non allergic rhinitis,, cystocele, tick bite, senile osteoporosis, sensorineural hearing loss, bilateral dry eyes, insomnia. She lives with her . She presented to [facility] ED 05/11/22 with nausea, vomiting, and diarrhea. She was feeling sick, one episode of vomiting and four to five episodes of diarrhea.Her had a similar illness but it was mild. She is COVID vaccinated and boosted as per the patient. She is sitting in bed with her bedside. She is feeling much better today and was able to eat. denies CP, SOB, abdominal pain, N, V. Allergies Allergy/AdvReac Type Severity Reaction Status Date / Time pollen extracts Allergy Intermediate ITCHY Verified 04/30/22 21:44 EYES, SNEEZING, CONGESTION gluten AdvReac Intermediate Gastrointestinal Verified 04/30/22 21:44 Upset Home Medications Medication Instructions Recorded Confirmed Type L.acidoph-L.rhamn-B.bifidum-B.long 1 tab PO TIDM 04/30/22 04/30/22 History 12.9 mg (2 billion cell) tablet, DR (Probiotic Acidophilus Biobeads) aspirin 81 mg tablet,delayed 81 mg PO Q OTHER DAY 04/30/22 04/30/22 History release atorvastatin 10 mg tablet 10 mg PO DAILY 04/30/22 04/30/22 History calcium carbonate 500 mg calcium 500 mg PO DAILY 04/30/22 04/30/22 History (1,250 mg) tablet conjugated estrogens 0.625 mg/gram 0.625 mg vaginal [id number] 04/30/22 04/30/22 History vaginal cream (Premarin) diphenhydramine HCl 25 mg capsule 25 mg PO HS PRN Sleep 04/30/22 04/30/22 History (Benadryl) hydrocortisone 2.5 % topical cream 1 applic topical BID PRN Skin 04/30/22 04/30/22 History Irritation magnesium oxide 400 mg PO DAILY 04/30/22 04/30/22 History polyethylene glycol 3350 17 17 g PO DAILY PRN Constipation 04/30/22 04/30/22 History gram/dose oral powder (Miralax) propylene glycol 0.6 % eye drops 1 drp ophthalmic (eye) QID PRN Dry 04/30/22 04/30/22 History (Systane Balance) Eyes riboflavin (vitamin B2) 400 mg 400 mg PO DAILY 04/30/22 04/30/22 History tablet vitamins A,C,P-kcek-qzomap 14,320 1 cap PO DAILY 04/30/22 04/30/22 History unit-226 mg-200 unit capsule (PreserVision AREDS) Patient History Social History Smoking Status: Never smoker Hx Alcohol Use: No Hx Substance Use: No Preferred Language: Hebrew Communication Ability: Effective Surgical Scrub Tech Required: No Beliefs That Will Affect Care: None marital status: Current Living Situation: Spouse Other Information That Helps Us Care for You: No Feels Safe at Home: Yes Safety Concerns: Feels Safe At This Time Assistive Devices: None Review of Systems Review of Systems: All systems reviewed & are unremarkable except as noted in HPI & below Physical Exam Physical Exam: Physical Exam: Constitutional: appearance nourished, healthy and normal Ears, Nose, Mouth and Throat: mucous membranes moist, no injection and skin normal, eyes normal Cardiovascular: normal S-1 and S-2 and regular rate and rhythm Respiratory: clear to auscultation (CTA) and no rales, ronchi or wheeze Musculoskeletal: no peripheral edema and good distal pulses Skin: no stigmata of neurocutaneous disease noted and normal and intact Eyes: extraocular muscles intact (EOMI) and pupils equal, round and reactive to light (PERRL) NEUROLOGIC EXAMINATION: Mental status: Alert and interactive Oriented to full date and location, can identify stethoscope, thumb ring knows president Oriented to person Speech fluent with no evidence of aphasia Cranial Nerves smile eye brow raise symmetric Reflexes: Deep tendon reflexes were symmetrical and graded 2/5.down going toes Sensory: light cool, vibration intact Coordination: finger to nose Gait/Stance: Posture sitting up in bed Motor: Negative for pronator drift of out stretched arms with eyes closed. Strength: hand pipe bender biceps triceps 5/5 bilaterally hip flex plantar flex ext 5/5 Results & Data ([facility]) Vital Signs (Past 12 Hours) Vital Signs Temp Pulse Resp BP Pulse Ox O2 Del Method 05/02/22 07:40 36.5 C 66 16 156/73 H 96 Room Air Laboratory Results Abnormal lab results 05/02/22 05/02/22 Range/Units 06:43 06:43 Sodium 133 L (136-145) mmol/L Hemoglobin A1c 6.0 H (4.5-5.6) % Calcium 8.4 L (8.5-10.1) mg/dl Phosphorus 2.4 L (2.5-4.9) mg/dl Diagnostic Findings CT Abd/pelvis-No acute intra-abdominal or pelvic abnormality. Diverticulosis without evidence for diverticulitis. CT head-No acute intracranial abnormality. Atrophy and microvascular ischemic changes. CXR-Cardiomegaly without radiographic evidence of congestive failure. No airspace consolidation or pleural effusion is identified.
--- NOTE | 2022-05-02 19:50 | Hospitalist Progress Note ---
Date of Service May 02, 2022 Assessment & Plan (1) Encephalopathy: Plan: Unclear etiology however patient recently had a concussion with reinjury to her head. Shortly after she became sick with this GI illness. One explanation may be that her concussion syndrome worsened with the insult from the infection. Stroke is always a possibility, or developing head bleed. Patient's encephalopathy appears improved per family but is still significantly off her baseline. She has had no fever and does not appear acutely infected. There is no evidence of leukocytosis. CT head in the ER did not reveal any acute intracranial abnormalities. Atrophy and microvascular ischemic changes were noted. We will continue the work-up for stroke with an MRI and MRA of the head and neck. B12, TSH and folate were WNL and CXR was clear of any infection that may be contributing. UA was clear on admission. PT/OT consulted. We will also consult neurology for additional thoughts. Her symptoms are nonfocal except for some issues with word finding difficulty but that is intermittent. Suspect some type of global amnesia which is improved today. MRI not done overnight because of difficulties with the screening process. Will proceed wtih this now. (2) Acute gastroenteritis: Plan: Stool studies are still pending. No BM yet which is reassuring. No overt vomiting or diarrhea today. Nontender abdomen. She is now tolerating p.o. and looking better. Patient is feeling better. (3) Hyponatremia: Plan: Secondary to #2. Continues to improve with eating more foods. (4) Hypokalemia: Plan: Secondary to GI losses. Resolved. (5) DVT prophylaxis: Plan: Lovenox Full code Disposition-Home pending neuro recommendations, clinical improvement and confusion and after patient is reliably tolerating solid food. Molly Bacon DO [facility] Hospitalist Admission and Anticipated Discharge Date Admission Date: May 01, 2022 Subjective 87 yo F presents with recurrent nausea and vomiting which is improved. She did report some abdominal discomfort after lunch today. Also presents with acute confusion and some difficulty with word finding/dysarthria. This is new when she is off her baseline. She is improved today and there is no focal neurologic deficit. Overnight MRI was unable to be completed for various reasons. After neurology evaluation MRI is still requested. We will order this now. She otherwise denies any pain or other issues at this time. There is no diarrhea present, in fact, she has not had a bowel movement since admission per her report. Review of Systems Review of Systems: All systems were reviewed and negative except as indicated above. Physical Exam Physical Exam: CONSTITUTIONAL: WNWD, vitals as above, generally well- appearing, NAD EYES: EOMI bilaterally, pupils are round and equal bilaterally, normal conjunctivae, no scleral icterus ENT: external ear and nose normal, MMM NECK: trachea midline, RESPIRATORY: clear to auscultation bilaterally, no crackles, rales or wheezes, normal respiratory effort CARDIOVASCULAR: regular rate and rhythm, S1 and 2 heard without murmurs, gallops or rubs, no JVD, no peripheral edema CHEST: inspection of chest was normal GASTROINTESTINAL: soft, nontender, ND, no guarding MUSCULOSKELETAL: strength 5/5 throughout, head is normocephalic and atraumatic SKIN: warm and dry NEUROLOGIC: CN 2-12 grossly intact, no sensory deficit, normal cognition, some slight slurring of words when she gets tripped up with long sentences, some word finding difficulty, but she can find the word eventually, no tremor PSYCHIATRIC: alert cooperative and oriented to person, place and time. Euthymic mood, makes good eye contact, language grossly intact, +memory decline but appears to be remembering more today than yesterday. Results & Data Results & [facility]) Vital Signs (Past 12 Hours) Vital Signs Temp Pulse Resp BP Pulse Ox O2 Del Method 05/02/22 15:35 36.6 C 57 L 16 155/75 H 95 Room Air Laboratory Results Short CBC 05/02/22 Range/Units 06:43 WBC 5.97 (4.8-10.8) K/ul Hgb 12.8 (12.0-16.0) g/dl Hct 37.6 (34.1-44.9) % Plt Count 199 (130-400) K/uL BMP 05/02/22 06:43 Sodium 133 L Potassium 3.6 Chloride 101 Carbon Dioxide 26 BUN 10 Creatinine 0.61 Glucose 96 Calcium 8.4 L Medications Administered Current Inpatient Medications Acetaminophen (Acetaminophen 325 Mg Tab) 650 mg PO Q4H PRN PRN Reason: pain/fever Stop: 05/31/22 02:42 Last Admin: 05/01/22 14:25 Dose: 650 mg Artificial Tears (Artificial Tears) 1 drops OP QID PRN PRN Reason: dry eyes Stop: 05/31/22 08:59 Aspirin (Aspirin 81 Mg Ectab) 81 mg PO Q48H MALATHI Stop: 05/31/22 20:59 Last Admin: 05/01/22 21:17 Dose: 81 mg Atorvastatin Calcium (Atorvastatin 10 Mg Tab) 10 mg PO PM MALATHI Stop: 05/31/22 20:59 Last Admin: 05/01/22 21:17 Dose: 10 mg Calcium Carbonate (Calcium Carbonate 500 Mg Chewable Tab) 500 mg PO DAILY MALATHI Stop: 05/31/22 08:59 Last Admin: 05/02/22 09:46 Dose: Not Given Diphenhydramine HCl (Diphenhydramine Capsule 25 Mg Cap) 25 mg PO HS PRN PRN Reason: Sleep Stop: 05/31/22 02:42 Estrogens Conjugated (Premarin Vag Crm 14 Appln/30 Gm Tube) 0.5 appln PV MoWeFr@0900 MALATHI Stop: 05/31/22 08:59 Last Admin: 05/01/22 08:31 Dose: Not Given Hydrocortisone (Hydrocortisone 2.5% Cr 30 Gm Tube) 1 appln EXT BID PRN PRN Reason: Skin Irritation Stop: 05/31/22 02:42 Lactobacillus Acidophilus (Advanced Probiotic 1250 Mg Capsule) 2 cap PO DAILY MALATHI Stop: 05/31/22 08:59 Last Admin: 05/02/22 09:46 Dose: 2 cap Magnesium Oxide (Magnesium Oxide 400 Mg Tab) 400 mg PO DAILY MALATHI Stop: 05/31/22 08:59 Last Admin: 05/02/22 09:45 Dose: 400 mg Miscellaneous Information (Pharmacist Discharge Med Rec Consult) 1 each N/A UD PRN PRN Reason: Consult Stop: 05/31/22 17:39 Multivitamins/Minerals (Cerovite Adv Formula Tab) 1 tab PO DAILY MALATHI Stop: 05/31/22 08:59 Last Admin: 05/02/22 09:45 Dose: 1 tab Ondansetron HCl (Ondansetron Inj 2 Mg/Ml 2 Ml Vial) 4 mg IV Q6H PRN PRN Reason: Nausea Stop: 05/31/22 02:42
[2022-05-02] MEDS: ATORVASTATIN 10 MG TAB PO SCH (20:09)
--- NOTE | 2022-05-02 20:14 | XRay Report ---
ORBIT RADIOGRAPHS 3 VIEWS HISTORY: pre-MRI screening. COMPARISON: None. FINDINGS: There are no radiopaque foreign bodies identified within the orbits. IMPRESSION: No radiopaque foreign bodies identified within the orbits. ACT 112: Negative or not required by law. Electronically signed by: Umang De La O M.D. 05/02/2022 8:12 PM
[2022-05-03] MEDS ORDERED: GADOBUTROL 65ML VIAL IV ONE (00:13)
[2022-05-03] MEDS: CALCIUM CARBONATE 500 MG CHEWABLE TAB PO SCH (08:08)
[2022-05-03] MEDS: ADVANCED PROBIOTIC 1250 MG CAPSULE PO SCH (08:08)
[2022-05-03] MEDS: MAGNESIUM OXIDE 400 MG TAB PO SCH (08:09)
[2022-05-03] MEDS: CEROVITE ADV FORMULA TAB PO SCH (08:09)
[2022-05-03] MEDS: PREMARIN VAG CRM 14 APPLN/30 GM TUBE PV SCH (08:09)
[2022-05-03 08:21] LABS: Hematocrit (blood only) 40.1 % (34.1-44.9); Hemoglobin 13.4 g/dl (12.0-16.0); Mean Corpuscular Hemoglobin 28.8 pg (25.0-34.0); Mean Corpuscular Hgb Conc 33.4 g/dL (32.0-36.0); Mean Corpuscular Volume 86.1 fL (80.0-100.0); Mean Platelet Volume 11.3 fL (9.4-12.3); Platelet Count 205 K/uL (130-400); RDW Coefficient of Variation 13.6 % (11.5-14.5); RDW Standard Deviation 42.5 fL (36.4-46.3); Red Blood Count 4.66 M/uL (3.93-5.22); White Blood Count 5.49 K/ul (4.8-10.8)
--- NOTE | 2022-05-03 08:34 | Magnetic Resonance Report ---
MR brain wo con CLINICAL HISTORY: word finding issues TECHNIQUE: Multiplanar and multisequence MR images of the brain were obtained without intravenous con trast. Comparison: Comparison is made to MRA head 05/02/2022 FINDINGS: No abnormal restricted diffusion is identified. Foci of T2 and FLAIR hyperintensity are noted in the paraventricular areas consistent with chronic small vessel ischemic disease. Ex vacuo ventriculomegal y and sulcal enlargement is noted compatible with diffuse encephalomalacia. No mass is seen. There is no mass effect or midline shift. There is no evidence of acute intraparenchymal hemorrhage. No extra axial fluid collections are seen. The corpus callosum, pituitary gland, and cerebellar tonsils appea r grossly unremarkable. Flow voids of the major intracranial arterial vessels are identified. The imaged portions of the para nasal sinuses, mastoid air cells, and orbits are unremarkable. IMPRESSION: No acute abnormalities. ACT 112: Negative or not required by law. Electronically signed by: Aleks Diane M.D. 05/03/2022 8:33 AM
--- NOTE | 2022-05-03 08:42 | Magnetic Resonance Report ---
MR angio head wo con CLINICAL HISTORY: word-finding issues. COMPARISON: None. TECHNIQUE: 3-D time of flight MR angiographic images of the brain were also obtained without IV contr ast. FINDINGS: Posterior circulation: Both vertebral arteries, the basilar artery, and both posterior cerebral arter ies are patent. Anterior circulation: Both internal carotid arteries are patent. There is normal left anterior and mi ddle cerebral arteries. 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 The distal branches fill via the anterior communicating artery. The right middle cerebral artery is within normal limits. No arterial occlusion, hemodynamically significant stenosis, aneurysm, or vascular malformation is se en. IMPRESSION: Essentially normal MRA of the cerebral circulation for the patient's age. ACT 112: Negative or not required by law. Electronically signed by: Perico Serna M.D. 05/03/2022 8:41 AM
--- NOTE | 2022-05-03 08:44 | Magnetic Resonance Report ---
NECK MRA HISTORY: Confusion. word-finding issues TECHNIQUE: Dspn-gw-spognm and gadolinium-enhanced MRA of the neck was performed both before and after the intravenous administration of contrast. All measurements were calculated based on NASCET criteri a. COMPARISON STUDY: None. FINDINGS: The aortic arch and proximal great vessels are widely patent. There is no significant sten osis, occlusion, or dissection identified within the bilateral common carotid, internal carotid, or v ertebral arteries. IMPRESSION: No significant stenosis, occlusion, or dissection identified within the carotid or vertebral arteries . ACT 112: Negative or not required by law. Electronically signed by: Perico Serna M.D. 05/03/2022 8:43 AM
[2022-05-03 09:11] LABS: BUN Creatinine Ratio 18.3 (10-20); Calcium 8.5 mg/dl (8.5-10.1); Est GFR (African American) 93.7 ml/min; Est GFR (Non-African American) 80.8 ml/min; Magnesium 2.2 mg/dl (1.7-2.4); Potassium 3.6 mmol/L (3.5-5.1)
--- NOTE | 2022-05-03 11:30 | Hospitalist Progress Note ---
Date of Service May 03, 2022 Assessment & Plan (1) Encephalopathy: Plan: - Unclear etiology however patient recently had a concussion with reinjury to her head. Shortly after she became sick with this GI illness. One explanation may be that her concussion syndrome worsened with the insult from the infection. Stroke is always a possibility, or developing head bleed. Patient's encephalopathy appears improved per family but is still significantly off her baseline. She has had no fever and does not appear acutely infected. There is no evidence of leukocytosis. - CT head in the ER did not reveal any acute intracranial abnormalities. Atrophy and microvascular ischemic changes were noted. - work-up for stroke with an MRI and MRA of the head and neck was unrevealing - B12, TSH and folate were WNL and CXR was clear of any infection that may be contributing. - UA was clear on admission. - PT/OT (2) Acute gastroenteritis: Plan: - Stool studies are still pending. - No overt vomiting or diarrhea. Nontender abdomen. - She is now tolerating p.o. and looking better. - no BM since admission - encourage stool softeners and hydration (3) Hyponatremia: Plan: - resolved (4) Hypokalemia: Plan: Secondary to GI losses. Resolved. (5) DVT prophylaxis: Plan: Lovenox Full code Disposition-Home pending neuro recommendations, clinical improvement and confusion and after patient is reliably tolerating solid food. Plan Chaitanya Virgen MD [facility] Medicine Admission and Anticipated Discharge Date Admission Date: May 01, 2022 Subjective 87 yo F presents with recurrent nausea and vomiting which is improved. Also presented with acute confusion and some difficulty with word finding/dysarthria. This wass new when she is off her baseline. She is improved since admission and there is no focal neurologic deficit. MRI brain and MRA head and neck were unremarkable. Neurology continues to follow. She otherwise denies any pain or other issues at this time. She is feeling well and would like to be discharged today. She denies any focal deficits or issues speaking but does say she has some difficulty with word finding if she is speaking for a prolonged period of time. She also reports some intermittent hallucinations of objects mostly that are not bothersome. Review of Systems Constitutional: no fever, no chills, no fatigue, no weakness and no weight loss Eyes: no diplopia, no eye pain and no photophobia Ear, Nose, Mouth, Throat: no ear pain, no ear discharge, no tinnitus, no hearing loss, no dizziness, no nasal congestion, no sinus pain/pressure, no mouth lesions, no sore throat, no change in voice, no hoarseness, no dysphagia and no pain with swallowing Respiratory: no cough, no chest congestion, no change in sputum, no dyspnea, no dyspnea on exertion, no hemoptysis, no sputum production and no wheezing Cardiovascular: no chest pain, no chest pain with activity, no dyspnea at rest, no dyspnea on exertion, no orthopnea, no paroxysmal nocturnal dyspnea, no palpitations, no lightheadedness, no syncope, no edema and no claudication Gastrointestinal: no abdominal pain, no bloating, no nausea, no vomiting, no hematemesis, no dysphagia, no change in stools, no constipation, no diarrhea/loose stools, no blood in stools and no melena Genitourinary: no dysuria, no difficulty urinating, no urinary frequency, no urinary urgency, no decreased urination, no hematuria, no flank pain, no abnormal periods, no abnormal vaginal bleeding and no vaginal discharge Musculoskeletal: no back pain, no neck pain, no joint pain, no myalgia and no body aches Integumentary: no rash, no lesions, no wounds, no dry skin and no axillary lymphadenopathy Neurologic: no gait abnormality, no falls, no localized weakness, no generalized weakness, no paralysis, no numbness, no lack of coordination, no abnormal movements, no seizure-like activity, no dizziness, no syncope, no headache(s) and no abnormal speech Psychiatric: + visual hallucinations (reports intermittently seeing objects that come and go, knows they are not there but are not bothering her mostly); no depression, no anhedonia and no anxiety Endocrine: no fatigue, no polyphagia and no polyuria Hematologic / Lymphatic: no easy bruising, no lymphadenopathy, no night sweats and no unexplained weight loss Physical Exam Constitutional: well developed, well nourished and + well hydrated; no acute distress, not ill appearing and not overweight Eyes: + anicteric sclerae, PERRL and EOM intact bilaterally; no conjunctival abnormality ENMT: Ears: no external ear abnormality Nose: no sinus tenderness and no epistaxis Mouth: no oropharynx abnormality, no oral mucosal abnormality, oral mucous membranes not dry and no dentition abnormality Throat: no tonsil ab normality Neck: trachea midline; no tracheal deviation and no nuchal rigidity Thyroid: normal thyroid; no thyromegaly and thyroid nontender Respiratory: normal respiratory effort; no respiratory distress, no labored breathing, does not use accessory muscles, not tachypneic and no audible wheezes Auscultation: lungs clear to auscultation bilaterally; no crackles, no rales, no rhonchi and no wheezes Cardiovascular: Rate/Rhythm: regular rate and regular rhythm Heart Sounds: normal S1 and normal S2; no gallop, no murmur and no cardiac rub Vessels: normal peripheral pulses; no JVD Extremities: normal capillary refill; no edema Gastrointestinal (Abdomen): Inspection/Auscultation: normal bowel sounds; abdomen not distended Percussion/Palpation: abdomen soft; abdomen nontender, no guarding, abdomen not rigid and no hepatosplenomegaly Musculoskeletal: Head/Neck/Chest: normocephalic, head atraumatic and neck supple Spine: normal cervical ROM and no cervical spinal tenderness Extremities: strength 5/5 throughout; full ROM of extremities and no clubbing Skin: normal turgor; no rashes, no lesions, no ulcers, no induration, no j aundice, no dry skin and no erythema Neurologic: PERRL, EOMI, accommodation nl, no face palsy, no dysarthria moves all extremities and awake; no focal motor deficits Speech / Cognition: normal speech Motor/Sensory: no tremor, no fasciculations and no sensory deficit Cranial Nerves: PERRL, EOM intact bilaterally and tongue midline Psychiatric: Orientation: alert, oriented x 3 and cooperative Speech: nor mal rate/rhythm/volume of speech Affect: euthymic affect Genitourinary: no CVA tenderness Lymphatic: no lymphadenopathy and no lymphedema Results & Data Results & Data ([facility]) Vital Signs (Past 12 Hours) Vital Signs Temp Pulse Pulse Resp BP Pulse Ox O2 Del Method 05/03/22 11:14 36.7 C 58 L 18 152/79 H 94 Room Air 05/03/22 07:09 59 L 05/03/22 06:41 36.4 C L 62 18 144/62 H 96 Room Air 05/03/22 01:14 61 05/03/22 04:37 36.7 C 74 18 143/80 H 96 Room Air Laboratory Results Short CBC 05/03/22 Range/Units 07:29 WBC 5.49 (4.8-10.8) K/ul Hgb 13.4 (12.0-16.0) g/dl Hct 40.1 (34.1-44.9) % Plt Count 205 (130-400) K/uL BMP 05/03/22 07:29 Sodium 138 Potassium 3.6 Chloride 104 Carbon Dioxide 26 BUN 11 Creatinine 0.60 Glucose 93 Calcium 8.5 Diagnostic Findings Brain MRI 05/02/22 17:44 MR brain wo con CLINICAL HISTORY: word finding issues TECHNIQUE: Multiplanar and multisequence MR images of the brain were obtained without intravenous contrast. Comparison: Comparison is made to MRA head 05/02/2022 FINDINGS: No abnormal restricted diffusion is identified. Foci of T2 and FLAIR hyperintensity are noted in the paraventricular areas consistent with chronic small vessel ischemic disease. Ex vacuo ventriculomegaly and sulcal enlargement is noted compatible with diffuse encephalomalacia. No mass is seen. There is no mass effect or midline shift. There is no evidence of acute intraparenchymal hemorrhage. No extra axial fluid collections are seen. The corpus callosum, pituitary gland, and cerebellar tonsils appear grossly unremarkable. Flow voids of the major intracranial arterial vessels are identified. The imaged portions of the paranasal sinuses, mastoid air cells, and orbits are unremarkab le. IMPRESSION: No acute abnormalities. ACT 112: Negative or not required by law. Electronically signed by: Aleks Diane M.D. 05/03/2022 8:33 AM Head MRA 05/02/22 17:44 MR angio head wo con CLINICAL HISTORY: word-finding issues. COMPARISON: None. TECHNIQUE: 3-D time of flight MR angiographic images of the brain were also obtained without IV contrast. FINDINGS: Posterior circulation: Both vertebral arteries, the basilar artery, and both posterior cerebral arteries are patent. Anterior circulation: Both internal carotid arteries are patent. There is normal left anterior and middle cerebral arteries. 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 The distal branches fill via the anterior communicating artery. The right middle cerebral artery is within normal limits. No arterial occlusion, hemodynamically significant stenosis, aneurysm, or vascular malformation is seen. IMPRESSION: Essentially normal MRA of the cerebral circulation for the patient's age. ACT 112: Negative or not required by law. Electronically signed by: Perico Serna M.D. 05/03/2022 8:41 AM Neck MRA 05/02/22 17:44 NECK MRA HISTORY: Confusion. word-finding issues TECHNIQUE: Tdsi-au-ncnaef and gadolinium-enhanced MRA of the neck was performed both before and after the intravenous administration of contrast. All measurements were calculated based on NASCET criteria. COMPARISON STUDY: None. FINDINGS: The aortic arch and proximal great vessels are widely patent. There is no significant stenosis, occlusion, or dissection identified within the bilateral common carotid, internal carotid, or vertebral arteries. IMPRESSION: No significant stenosis, occlusion, or dissection identified within the carotid or vertebral arteries. ACT 112: Negative or not required by law. Electronically signed by: Perico Serna M.D. 05/03/2022 8:43 AM Medications Administered Current Inpatient Medications Acetaminophen (Acetaminophen 325 Mg Tab) 650 mg PO Q4H PRN PRN Reason: pain/fever Stop: 05/31/22 02:42 Last Admin: 05/01/22 14:25 Dose: 650 mg Artificial Tears (Artificial Tears) 1 drops OP QID PRN PRN Reason: dry eyes Stop: 05/31/22 08:59 Aspirin (Aspirin 81 Mg Ectab) 81 mg PO Q48H MALATHI Stop: 05/31/22 20:59 Last Admin: 05/01/22 21:17 Dose: 81 mg Atorvastatin Calcium (Atorvastatin 10 Mg Tab) 10 mg PO PM MALATHI Stop: 05/31/22 20:59 Last Admin: 05/02/22 20:09 Dose: 10 mg Calcium Carbonate (Calcium Carbonate 500 Mg Chewable Tab) 500 mg PO DAILY MALATHI Stop: 05/31/22 08:59 Last Admin: 05/03/22 08:08 Dose: 500 mg Diphenhydramine HCl (Diphenhydramine Capsule 25 Mg Cap) 25 mg PO HS PRN PRN Reason: Sleep Stop: 05/31/22 02:42 Estrogens Conjugated (Premarin Vag Crm 14 Appln/30 Gm Tube) 0.5 appln PV MoWeFr@0900 MALATHI Stop: 05/31/22 08:59 Last Admin: 05/03/22 08:09 Dose: 0.5 appln Hydrocortisone (Hydrocortisone 2.5% Cr 30 Gm Tube) 1 appln EXT BID PRN PRN Reason: Skin Irritation Stop: 05/31/22 02:42 Lactobacillus Acidophilus (Advanced Probiotic 1250 Mg Capsule) 2 cap PO DAILY [facility] Stop: 05/31/22 08:59 Last Admin: 05/03/22 08:08 Dose: 2 cap Magnesium Oxide (Magnesium Oxide 400 Mg Tab) 400 mg PO DAILY [facility] Stop: 05/31/22 08:59 Last Admin: 05/03/22 08:09 Dose: 400 mg Miscellaneous Information (Pharmacist Discharge Med Rec Consult) 1 each N/A UD PRN PRN Reason: Consult Stop: 05/31/22 17:39 Multivitamins/Minerals (Cerovite Adv Formula Tab) 1 tab PO DAILY [facility] Stop: 05/31/22 08:59 Last Admin: 05/03/22 08:09 Dose: 1 tab Ondansetron HCl (Ondansetron Inj 2 Mg/Ml 2 Ml Vial) 4 mg IV Q6H PRN PRN Reason: Nausea Stop: 05/31/22 02:42
[2022-05-03] MEDS ORDERED: STROKE PATIENT DISCHARGE STA (11:44)
--- NOTE | 2022-05-03 18:13 | Discharge Summary ---
Date of Service May 03, 2022 Admission HPI Per Admitting Provider This is an 87-year-old female with past medical history significant for dyslipidemia,Non allergic rhinitis,, history of cystocele, history of tick bite, history of senile osteoporosis, sensorineural hearing loss, bilateral dry eyes, insomnia. Lives with her . Presents with nausea, vomiting, and diarrhea starting today. Feeling sick, one episode of vomiting and four to five episodes of diarrhea. Denies any fever or chills. No abdominal pain. No chest pain, no shortness of breath, no cough, no runny nose, no sore throat, no headache, no blurred visions. Currently, resting comfortably, hemodynamically stable. She states her got sick, it was a similar kind of sickness, but it was mild. She is COVID vaccinated and boosted as per the patient. Admission Exam Per Admitting Provider GENERAL: The patient is old and frail, not in acute distress. VITAL SIGNS: Temperature 36.8, pulse 74, respiratory rate 20, blood pressure 113/47, oxygen 96% on room air. HEENT: Pupils equal, round and reactive to light. Oral mucosa moist. NECK: No JVD, no neck masses. CARDIOVASCULAR: S1 and S2 heard. Regular rate and rhythm. No murmur, no gallop. RESPIRATORY SYSTEM: Normal AP diameter. No accessory muscle use. No wheezing, no crackles. ABDOMEN: Soft, bowel sounds present, nontender, no distention. CENTRAL NERVOUS SYSTEM: Alert and awake. Speech is clear. No facial droop. Insight is okay. Obeys simple commands. Moves extremities. EXTREMITIES: No edema, no erythema. Principal Diagnosis dehydration with altered mental status Discharge Exam Constitutional well developed, well nourished and + well hydrated; no acute distress, not ill appearing and not overweight Eyes + anicteric sclerae, PERRL and EOM intact bilaterally; no conjunctival abnormality ENMT Ears: no external ear abnormality Nose: no sinus tenderness and no epistaxis Mouth: no oropharynx abnormality, no oral mucosal abnormality, oral mucous membranes not dry and no dentition abnormality Throat: no tonsil abnormality Neck trachea midline; no tracheal deviation and no nuchal rigidity Thyroid: normal thyroid; no thyromegaly and thyroid nontender Respiratory normal respiratory effort; no respiratory distress, no labored breathing, does not use accessory muscles, not tachypneic and no audible wheezes Auscultation: lungs clear to auscultation bilaterally; no crackles, no rales, no rhonchi and no wheezes Cardiovascular Rate/Rhythm: regular rate and regular rhythm Heart Sounds: normal S1 and normal S2; no gallop, no murmur and no cardiac rub Vessels: normal peripheral pulses; no JVD Extremities: normal capillary refill; no edema Gastrointestinal (Abdomen) Inspection/Auscultation: normal bowel sounds; abdomen not distended Percussion/Palpation: abdomen soft; abdomen nontender, no guarding, abdomen not rigid and no hepatosplenomegaly Musculoskeletal Head/Neck/Chest: normocephalic, head atraumatic and neck supple Spine: normal cervical ROM and no cervical spinal tenderness Extremities: strength 5/5 throughout; full ROM of extremities and no clubbing Skin normal turgor; no rashes, no lesions, no ulcers, no induration, no jaundice, no dry skin and no erythema Neurologic PERRL, EOMI, accommodation nl, no face palsy, no dysarthria moves all extremities and awake; no focal motor deficits Speech / Cognition: normal speech Motor/Sensory: no tremor, no fasciculations and no sensory deficit Cranial Nerves: PERRL, EOM intact bilaterally and tongue midline Psychiatric Orientation: alert, oriented x 3 and cooperative Speech: normal rate/rhythm/volume of speech Affect: euthymic affect Genitourinary no CVA tenderness Lymphatic no lymphadenopathy and no lymphedema Discharge Data Allergies Allergy/AdvReac Type Severity Reaction Status Date / Time pollen extracts Allergy Intermediate ITCHY Verified 04/30/22 21:44 EYES, SNEEZING, CONGESTION gluten AdvReac Intermediate Gastrointestinal Verified 04/30/22 21:44 Upset Consultations 04/30/22 23:02 ED Decision to Admit Stat 05/01/22 17:33 Consult Neurology Routine Ordered Studies 04/30/22 20:38 CT abd pelvis IV con only Urgent CT head/brain wo con Urgent 05/02/22 17:44 MR angio head wo con Routine MR angio neck wo/w con Routine MR brain wo con Routine Hospital Course (1) Encephalopathy: - Unclear etiology however patient recently had a concussion with reinjury to her head. Shortly after she became sick with this GI illness. One explanation may be that her concussion syndrome worsened with the insult from the infection. Stroke is always a possibility, or developing head bleed. Patient's encephalopathy appears improved per family but is still significantly off her baseline. She has had no fever and does not appear acutely infected. There is no evidence of leukocytosis. - CT head in the ER did not reveal any acute intracranial abnormalities. Atrophy and microvascular ischemic changes were noted. - work-up for stroke with an MRI and MRA of the head and neck was unrevealing - B12, TSH and folate were WNL and CXR was clear of any infection that may be contributing. - UA was clear on admission. - PT/OT (2) Acute gastroenteritis: - Stool studies are still pending. - No overt vomiting or diarrhea. Nontender abdomen. - She is now tolerating p.o. and looking better. - no BM since admission - encourage stool softeners and hydration (3) Hyponatremia: - resolved (4) Hypokalemia: Secondary to GI losses. Resolved. (5) DVT prophylaxis: Lovenox Full code Disposition-Home pending neuro recommendations, clinical improvement and confusion and after patient is reliably tolerating solid food. Plan Chaitanya Virgen MD [facility] Total Time Total Time Spent Total Time Spent (In Minutes): 30 minutes Total Time Includes: Examination of the Patient, Discharge Planning, Medication Reconciliation and Communication With Other Providers Discharge Plan Discharge Items Patient Disposition: Home - Self-Care Reason For Visit: ILLNESS Discharge Diagnosis: altered mental status Condition on Discharge: Fair Activity: Resume your previous activity Non-emergency contact: Primary Care Provider, [facility] and Neurologist Call non-emergency contact if: you have any medication questions and your symptoms worsen Follow-up/Referrals: Chaya Rodgers MD [Physician] - Yahir Martinez DO [Primary Care Provider] - Diet: Heart Healthy and Low Sodium (2gm) Addtl Attending Provider Instructions: You were admitted to the hospital for confusion and difficulty speaking. You were seen by neurologist and had an MRI of your brain that was negative for a stroke. Your symptoms improved with hydration and you were ready for discharge. Please be sure to take Aspirin at leat 3-4 times per week, your cholesterol medication every day and follow up with your primary care doctor, [facility], and the neurologist you saw here. Pending Studies at Discharge: No Stand-Alone Forms: My [employer], Smoking Cessation Medications and DC Order Prescriptions: Continued aspirin 81 mg Tablet,Delayed Release (Dr/Ec) 81 mg PO Q OTHER DAY calcium carbonate 500 mg calcium (1,250 mg) Tablet 500 mg PO DAILY Premarin 0.625 mg/gram Cream 0.625 mg VAGINAL [id number] Rx Instructions: MON, WED, & FRI. hydrocortisone 2.5 % Cream 1 applic TOPICAL BID PRN (Reason: Skin Irritation) polyethylene glycol 3350 [Miralax] 17 gram/dose Powder 17 g PO DAILY PRN (Reason: Constipation) PreserVision AREDS [id number] Capsule 1 cap PO DAILY Systane Balance 0.6 % Drops 1 drp OPHTHALMIC (EYE) QID PRN (Reason: Dry Eyes) Probiotic Acidophilus Biobeads 12.9 mg (2 billion cell) Tablet,Delayed Release (Dr/Ec) 1 tab PO TIDM riboflavin (vitamin B2) 400 mg Tablet 400 mg PO DAILY magnesium oxide 400 mg magnesium Tablet 400 mg PO DAILY Changed atorvastatin 10 mg Tablet 40 mg PO DAILY Qty: 30 0RF Discontinued diphenhydramine HCl [Benadryl] 25 mg Capsule 25 mg PO HS PRN (Reason: Sleep) Discharge Orders: Discharge Order (Routine); Ordered 05/03/22 Ordered By: Chaitanya Virgen Admission Data Admit Date/Time: 05/01/22 01:52 Attending Provider: Chaitanya Virgen Admit Provider: Ethan Gomez Primary Care Provider: Yahir Martinez Other Providers: Ethan Gomez ; Chaya Rodgers Other Interventions: Discharge Summary Assessment (RN) Last Done: 05/03/22 12:15
== END 2022-05-03 13:45 | disposition home or self-care (01) | DRG 641 ==
LOC: ED 20:09 → SUATTDRO 05-01 01:52 → 3E 05-01 01:52 → 2W 05-02 22:21